=== PATIENT | female | born 2000 | race Caucasian/White ===

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

== ENCOUNTER 2020-06-17 14:31 | Observation (INO) | payer OTHER ==
--- NOTE | 2020-06-17 15:26 | XRAY ---
Indication: Decreased movement. Ultrasound biophysical profile exam performed. There is a single intrauterine with heart rate 126 BPM. Four-quadrant ADEN is 12.2 cm. 2 points given for breathing, movements, tone, and qualitative amniotic fluid volume. Impression: Total biophysical profile score is 8 out of 8.
[2020-06-17 15:47] VITALS: BP 108/65; PULSE 82; O2SAT 98
== END 2020-06-17 16:05 | disposition home or self-care (01) ==
LOC: OB 14:31
PROVIDERS: ADMIT Family Medicine; ATTEND Family Medicine
DX: Z34.83 Encounter for supervision of other normal pregnancy, third trimester (principal); Z3A.30 30 weeks gestation of pregnancy
CPT/HCPCS: 76818; 93225; 93226; G0378

== ENCOUNTER 2020-07-05 19:19 | Observation (INO) | payer OTHER ==
[2020-07-05 19:45] LABS: Appearance CLEAR (CLEAR); Bilirubin NEGATIVE (NEGATIVE); Blood NEGATIVE Ery/ul (0-5); Glucose NEGATIVE (NEGATIVE); Ketones TRACE (NEGATIVE); Leukocyte Esterase NEGATIVE (NEGATIVE); Mucus SLIGHT /HPF (NEGATIVE); Nitrite NEGATIVE (NEGATIVE); Protein,Urine Dip NEGATIVE (Negative); Specific Gravity 1.018 (1.005-1.025); Urobilinogen 4 mg/dL (0-1); WBC 0-2 /HPF (0-5)
[2020-07-05 19:56] LABS: Amphetamine,Urine NEGATIVE (NEGATIVE); Barbiturate,Urine NEGATIVE (NEGATIVE); Benzodiazepine,Urine NEGATIVE (NEGATIVE); Cocaine,Urine NEGATIVE (NEGATIVE); Methadone,Urine NEGATIVE (NEGATIVE); Opiate,Urine NEGATIVE (NEGATIVE); PCP,Urine NEGATIVE (NEGATIVE); THC,Urine NEGATIVE (NEGATIVE)
[2020-07-06 00:27] VITALS: BP 118/70; PULSE 79; O2SAT 97
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
== END 2020-07-05 23:59 | disposition home or self-care (01) ==
LOC: OB 19:19
PROVIDERS: ADMIT Family Medicine; ATTEND Family Medicine
DX: Z34.83 Encounter for supervision of other normal pregnancy, third trimester (principal); Z3A.33 33 weeks gestation of pregnancy; V89.2XXA Person injured in unspecified motor-vehicle accident, traffic, initial encounter
CPT/HCPCS: 76815; 80307; 81001; G0378

== ENCOUNTER 2020-07-29 16:12 | Observation (INO) | payer OTHER ==
[2020-07-29 17:21] LABS: Absolute Neutrophil Ct (ANC) 6.87 (1.4-6.9); BASOPHIL % 0.2 % (0.0-0.4); Basophil (Absolute #) 0.02 (0-0.4); Eosinophil % 0.9 % (0.00-5.0); Eosinophil (Absolute #) 0.09 (0-0.5); Hematocrit 34.6 % (35-47); Hemoglobin 11.2 gm/dl (12.0-16.0); Lymphocyte (Absolute #) 2.65 (1.0-4.6); Lymphocytes % 26.1 % (24.0-44.0); Mean Cell Volume 89.6 fl (78-100); Mean Corpuscular Hgb Concent. 32.4 g/dl (32-36); Mean Platelet Volume 12.2 fl (7.5-11.0); Monocyte (Absolute #) 0.51 (0.0-1.3); Neutrophil % 67.8 % (36.0-66.0); Platelet Count 274 K/mm3 (150-450); Red Blood Count 3.86 M/mm3 (4.1-5.4); White Blood Count 10.1 K/mm3 (4.0-10.5)
[2020-07-29 17:25] LABS: Appearance SLIGHTLY CLOUDY (CLEAR); Bilirubin NEGATIVE (NEGATIVE); Blood NEGATIVE Ery/ul (0-5); Epithelial Cells FEW /HPF (FEW); Glucose NEGATIVE (NEGATIVE); Ketones NEGATIVE (NEGATIVE); Leukocyte Esterase SMALL (NEGATIVE); Mucus SLIGHT /HPF (NEGATIVE); Nitrite NEGATIVE (NEGATIVE); Protein,Urine Dip NEGATIVE (Negative); RBC 0-2 /HPF (0-2); Specific Gravity 1.013 (1.005-1.025); Urobilinogen NEGATIVE mg/dL (0-1)
[2020-07-29 17:35] LABS: ALBUMIN 3.5 g/dL (3.5-5.0); ALKALINE PHOSPHATASE 132 U/L (38-126); ANION GAP 13.8 MEQ/L (5-15); BLOOD UREA NITROGEN 3 mg/dL (7-17); CHLORIDE 106 mmol/L (98-107); Calcium 8.6 mg/dL (8.4-10.2); Carbon Dioxide 20 mmol/L (22-30); Creatinine 1 0.45 mg/dL (0.52-1.04); EST GLOMERULAR FILTRATION RATE > 60.0 ML/MIN; Glucose 106 mg/dL (74-106); Potassium 3.5 mmol/L (3.5-5.1); SGOT/AST 17 U/L (14-36); SGPT/ALT 10 U/L (0-35); SODIUM 136 mmol/L (137-145); Total Protein 6.8 g/dL (6.3-8.2)
[2020-07-29] MEDS: Lactated Ringers 1,000 ML IV SCH (17:42)
[2020-07-29] MEDS: Zofran 4 MG/2 ML VIAL IV PRN ×2 (17:42→23:08)
[2020-07-29 17:45] LABS: Amphetamine,Urine NEGATIVE (NEGATIVE); Barbiturate,Urine NEGATIVE (NEGATIVE); Benzodiazepine,Urine NEGATIVE (NEGATIVE); Cocaine,Urine NEGATIVE (NEGATIVE); Methadone,Urine NEGATIVE (NEGATIVE); Opiate,Urine NEGATIVE (NEGATIVE); PCP,Urine NEGATIVE (NEGATIVE); THC,Urine NEGATIVE (NEGATIVE)
[2020-07-29] MEDS: TYLENOL 325 MG PO PRN ×2 (17:46→21:58)
[2020-07-29 20:42] VITALS: O2SAT 99
[2020-07-29] MEDS ORDERED: ROCEPHIN 1 Gm-D5w 50 ml Bag** 1 G/50 ML IVPB IV SCH (21:00)
[2020-07-30] MEDS: TYLENOL 325 MG PO PRN ×2 (02:13→05:59)
[2020-07-30] MEDS: Lactated Ringers 1,000 ML IV SCH ×2 (04:14→13:12)
[2020-07-30] MEDS: Zofran 4 MG/2 ML VIAL IV PRN ×2 (04:55→10:20)
--- NOTE | 2020-07-30 13:54 | PCM.SSS ---
History of Present Illness - Chief Complaint Chief Complaint: IUP History of Present Illness: is a 20 year old female at 36w4d who came to office yesterday c/o elevated BP at home (to the 160s) and frontal headache with nausea and poor po intake. Her BP in office was 120/74. She was sent to LR for further observation; all BP there have been 100s-120s systolic and diastolic pressures in the normal range as well. In office, her frontal and maxillary sinuses were ttp bilaterally. Her blood work was nonacute (normal WBC count, plt, AST/ALT, and uric acid). UA free of protein but 24 hour urine is pending. FHT have been Cat I. No contractions noted. She's been on LR at 100cc/hr and received 1g IV rocephin for likely sinusitis. Today her BROOKS is gone. She continues to have some nausea although today this manifested after eating 2 servings of hashbrowns and 2 servings of timmons. Will discharge to home after second dose of rocephin and after 24 hour urine is comp leted. F/u with me in office next week. Pt needs new BP test kit at home. - Review of Systems Constitutional: Fatigue Neurological: Headache Psychological: Drug Abuse (history of; has been clean recently) All Other Systems: Reviewed and Negative Medications & Allergies Home Medications: Home Medication List Vits W-Ca,Fe,FA(<1Mg) [] 1 tab PO DAILY 12/14/17 [History Confirmed 07/30/20] Allergies/Adverse Reactions: Allergies Allergy/AdvReac Type Severity Reaction Status Date / Time Sulfa (Sulfonamide AdvReac Nausea Verified 09/25/16 00:34 Antibiotics) - Past Medical History Past Medical History: Yes Respiratory History: Asthma, Other Pyscho-Social History: Anxiety, Attention Deficit Disorder, Bipolar, Depression Comment: pt states she has recently been diagnosed with pulmonary htn by dr alannah weaver. Ectopic - Past Surgical History Past Surgical History: Yes Other Surgical History: gastric surgery as infant - Social History Smoking Status: Former smoker How long have you smoked: 9 YEARS Exposure to second hand smoke: Yes Alcohol: Occasionally Drug Use: marijuana - Physical Exam Vital Signs: Vital Signs - 24 hr Temp Pulse Resp BP BP Pulse Ox 07/30/20 11:00 72 114/68 07/30/20 10:00 83 119/75 07/30/20 09:00 69 110/69 07/30/20 08:00 57 L 18 101/56 07/30/20 07:09 51 L 106/60 07/30/20 06:15 56 L 104/65 07/30/20 05:00 60 18 106/51 07/30/20 04:00 68 98/55 07/30/20 03:00 71 18 111/56 07/30/20 02:00 98.4 F 64 115/75 07/30/20 01:00 75 109/63 07/30/20 00:00 70 18 112/70 07/29/20 23:00 98.4 F 80 107/56 07/29/20 22:00 71 109/61 07/29/20 21:00 75 125/59 07/29/20 20:00 98.4 F 82 20 116/64 99 07/29/20 17:00 98.4 F 77 18 105/57 97/56 97 General Appearance: no apparent distress, alert Neurologic Exam: oriented x 3, cooperative, other (pat refl 2+ bilat. 1 beat of clonus bilat.) Eye Exam: eyes nml inspection Ears, Nose, Throat Exam: moist mucous membranes Neck Exam: normal inspection, non-tender, No lymphadenopathy Respiratory Exam: normal breath sounds, lungs clear, No crackles/rales, No r honchi, No wheezing Cardiovascular Exam: regular rate/rhythm, normal heart sounds, No murmur Gastrointestinal/Abdomen Exam: soft, normal bowel sounds, other (gravid), No guarding, No rebound Back Exam: No CVA tenderness Extremity Exam: No pedal edema, No swelling Skin Exam: normal color, warm, dry, No rash (Exam done in office yesterday; This morning pt in NAD, no respiratory distress. Head AT/NC. Abd gravid. Extr nttp.) Results - Labs Lab/Micro Results: Lab Results-Last 24 Hours 07/29/20 07/29/20 07/29/20 Range/Units 17:01 17:01 17:02 WBC 10.1 (4.0-10.5) K/mm3 RBC 3.86 L (4.1-5.4) M/mm3 Hgb 11.2 L (12.0-16.0) gm/dl Hct 34.6 L (35-47) % MCV 89.6 (78-100) fl MCH 29.0 (26-32) pg MCHC 32.4 (32-36) g/dl RDW 13.0 (11.5-14.0) % Plt Count 274 (150-450) K/mm3 MPV 12.2 H (7.5-11.0) fl Gran % 67.8 H (36.0-66.0) % Eos # (Auto) 0.09 (0-0.5) Absolute Lymphs (auto) 2.65 (1.0-4.6) Absolute Monos (auto) 0.51 (0.0-1.3) Lymphocytes % 26.1 (24.0-44.0) % Monocytes % 5.0 (0.0-12.0) % Eosinophils % 0.9 (0.00-5.0) % Basophils % 0.2 (0.0-0.4) % Absolute Granulocytes 6.87 (1.4-6.9) Basophils # 0.02 (0-0.4) Sodium 136 L (137-145) mmol/L Potassium 3.5 (3.5-5.1) mmol/L Chloride 106 (98-107) mmol/L Carbon Dioxide 20 L (22-30) mmol/L Anion Gap 13.8 (5-15) MEQ/L BUN 3 L (7-17) mg/dL Creatinine 0.45 L (0.52-1.04) mg/dL Estimated GFR > 60.0 ML/MIN Glucose 106 (74-106) mg/dL Calcium 8.6 (8.4-10.2) mg/dL Total Bilirubin 0.40 (0.2-1.3) mg/dL AST 17 (14-36) U/L ALT 10 (0-35) U/L Alkaline Phosphatase 132 H (38-126) U/L Serum Total Protein 6.8 (6.3-8.2) g/dL Albumin 3.5 (3.5-5.0) g/dL Urine Color YELLOW (YELLOW) Urine Appearance SLIGHTLY CLOUDY (CLEAR) Urine pH 6.0 (5-6) Ur Specific [place] 1.013 (1.005-1.025) Urine Protein NEGATIVE (Negative) Urine Ketones NEGATIVE (NEGATIVE) Urine Blood NEGATIVE (0-5) Marlo/ul Urine Nitrite NEGATIVE (NEGATIVE) Urine Bilirubin NEGATIVE (NEGATIVE) Urine Urobilinogen NEGATIVE (0-1) mg/dL Ur Leukocyte Esterase SMALL (NEGATIVE) Urine WBC (Auto) 3-5 (0-5) /HPF Urine RBC (Auto) 0-2 (0-2) /HPF U Epithel Cells (Auto) FEW (FEW) /HPF Urine Bacteria (Auto) NONE (NEGATIVE) /HPF Urine Mucus (Auto) SLIGHT (NEGATIVE) /HPF Urine Culture Reflexed NO (NO) Urine Glucose NEGATIVE (NEGATIVE) mg/dL Urine Opiates Level (NEGATIVE) Ur Methadone (NEGATIVE) Urine Barbiturates (NEGATIVE) Ur Phencyclidine (PCP) (NEGATIVE) Urine Amphetamine (NEGATIVE) U Benzodiazepine Level (NEGATIVE) Urine Cocaine (NEGATIVE) Urine Marijuana (THC) (NEGATIVE) 07/29/20 Range/Units 17:02 WBC (4.0-10.5) K/mm3 RBC (4.1-5.4) M/mm3 Hgb (12.0-16.0) gm/dl Hct (35-47) % MCV (78-100) fl MCH (26-32) pg MCHC (32-36) g/dl RDW (11.5-14.0) % Plt Count (150-450) K/mm3 MPV (7.5-11.0) fl Gran % (36.0-66.0) % Eos # (Auto) (0-0.5) Absolute Lymphs (auto) (1.0-4.6) Absolute Monos (auto) (0.0-1.3) Lymphocytes % (24.0-44.0) % Monocytes % (0.0-12.0) % Eosinophils % (0.00-5.0) % Basophils % (0.0-0.4) % Absolute Granulocytes (1.4-6.9) Basophils # (0-0.4) Sodium (137-145) mmol/L Potassium (3.5-5.1) mmol/L Chloride (98-107) mmol/L Carbon Dioxide (22-30) mmol/L Anion Gap (5-15) MEQ/L BUN (7-17) mg/dL Creatinine (0.52-1.04) mg/dL Estimated GFR ML/MIN Glucose (74-106) mg/dL Calcium (8.4-10.2) mg/dL Total Bilirubin (0.2-1.3) mg/dL AST (14-36) U/L ALT (0-35) U/L Alkaline Phosphatase (38-126) U/L Serum Total Protein (6.3-8.2) g/dL Albumin (3.5-5.0) g/dL Urine Color (YELLOW) Urine Appearance (CLEAR) Urine pH (5-6) Ur Specific [place] (1.005-1.025) Urine Protein (Negative) Urine Ketones (NEGATIVE) Urine Blood (0-5) Marlo/ul Urine Nitrite (NEGATIVE) Urine Bilirubin (NEGATIVE) Urine Urobilinogen (0-1) mg/dL Ur Leukocyte Esterase (NEGATIVE) Urine WBC (Auto) (0-5) /HPF Urine RBC (Auto) (0-2) /HPF U Epithel Cells (Auto) (FEW) /HPF Urine Bacteria (Auto) (NEGATIVE) /HPF Urine Mucus (Auto) (NEGATIVE) /HPF Urine Culture Reflexed (NO) Urine Glucose (NEGATIVE) mg/dL Urine Opiates Level NEGATIVE (NEGATIVE) Ur Methadone NEGATIVE (NEGATIVE) Urine Barbiturates NEGATIVE (NEGATIVE) Ur Phencyclidine (PCP) NEGATIVE (NEGATIVE) Urine Amphetamine NEGATIVE (NEGATIVE) U Benzodiazepine Level NEGATIVE (NEGATIVE) Urine Cocaine NEGATIVE (NEGATIVE) Urine Marijuana (THC) NEGATIVE (NEGATIVE) Assessment/Plan (1) Current Visit: Yes Status: Acute Qualifiers: Weeks of gestation: 36 weeks Qualified Code(s): Z3A.36 - 36 weeks gestation of Assessment & Plan: Discussed no indication to induce at this time. No sign of pre-eclampsia here in OB - 24 hour urine pending. Code(s): Z34.90 - ENCNTR FOR SUPRVSN OF NORMAL , UNSP, UNSP TRIMESTER (2) Sinusitis Current Visit: Yes Status: Acute Qualifiers: Sinusitis location: frontal Chronicity: acute Recurrence: not specified as recurrent Qualified Code(s): J01.10 - Acute frontal sinusitis, unspecified Assessment & Plan: Home on po keflex. Code(s): J32.9 - CHRONIC SINUSITIS, UNSPECIFIED (3) Headache Current Visit: Yes Status: Resolved Qualifiers: Headache type: unspecified Headache chronicity pattern: acute headache Intractability: not intractable Qualified Code(s): R51.9 - Headache, unspecified Assessment & Plan: likely due to sinusitis Code(s): R51.9 - HEADACHE, UNSPECIFIED (4) Nausea and vomiting Current Visit: No Status: Acute Qualifiers: Vomiting type: unspecified Vomiting Intractability: non-intractable Qualified Code(s): R11.2 - Nausea with vomiting, unspecified Assessment & Plan: improved; pt admits she ate too much earlier which likely induced nausea to return. Code(s): R11.2 - NAUSEA WITH VOMITING, UNSPECIFIED Hospital Summary - Hospital Course Hospital Course: is a 20 year old female at 36w4d who came to office yesterday c/o elevated BP at home (to the 160s) and frontal headache with nausea and poor po intake. Her BP in office was 120/74. She was sent to LR for further observ ation; all BP there have been 100s-120s systolic and diastolic pressures in the normal range as well. In office, her frontal and maxillary sinuses were ttp bilaterally. Her blood work was nonacute (normal WBC count, plt, AST/ALT, and uric acid). UA free of protein but 24 hour urine is pending. FHT have been Cat I. No contractions noted. She's been on LR at 100cc/hr and received 1g IV rocephin for likely sinusitis. Today her BROOKS is gone. She continues to have some nausea although today this manifested after eating 2 servings of hashbrowns and 2 servings of timmons. Will discharge to home after second dose of rocephin and after 24 hour urine is completed. F/u with me in office next week. Pt needs new BP test kit at home. - Vitals & Intake/Output Vital Signs: Vital Signs Temperature 98.4 F 07/30/20 02:00 Pulse Rate 72 07/30/20 11:00 Respiratory Rate 18 07/30/20 08:00 Blood Pressure 114/68 07/30/20 11:00 O2 Sat by Pulse Oximetry 99 07/29/20 20:00 Intake & Output: Intake & Output 07/28/20 07/29/20 07/30/20 07/31/20 11:59 11:59 11:59 11:59 Intake Total 500 540 Output Total 1250 Balance -750 540 Weight 81.647 kg - Lab Result Diagrams: 07/29/20 17:01 07/29/20 17:01 Lab Results-Last 24 Hrs: Lab Results-Last 24 Hours 07/29/20 07/29/20 07/29/20 Range/Units 17:01 17:01 17:02 WBC 10.1 (4.0-10.5) K/mm3 RBC 3.86 L (4.1-5.4) M/mm3 Hgb 11.2 L (12.0-16.0) gm/dl Hct 34.6 L (35-47) % MCV 89.6 (78-100) fl MCH 29.0 (26-32) pg MCHC 32.4 (32-36) g/dl RDW 13.0 (11.5-14.0) % Plt Count 274 (150-450) K/mm3 MPV 12.2 H (7.5-11.0) fl Gran % 67.8 H (36.0-66.0) % Eos # (Auto) 0.09 (0-0.5) Absolute Lymphs (auto) 2.65 (1.0-4.6) Absolute Monos (auto) 0.51 (0.0-1.3) Lymphocytes % 26.1 (24.0-44.0) % Monocytes % 5.0 (0.0-12.0) % Eosinophils % 0.9 (0.00-5.0) % Basophils % 0.2 (0.0-0.4) % Absolute Granulocytes 6.87 (1.4-6.9) Basophils # 0.02 (0-0.4) Sodium 136 L (137-145) mmol/L Potassium 3.5 (3.5-5.1) mmol/L Chloride 106 (98-107) mmol/L Carbon Dioxide 20 L (22-30) mmol/L Anion Gap 13.8 (5-15) MEQ/L BUN 3 L (7-17) mg/dL Creatinine 0.45 L (0.52-1.04) mg/dL Estimated GFR > 60.0 ML/MIN Glucose 106 (74-106) mg/dL Calcium 8.6 (8.4-10.2) mg/dL Total Bilirubin 0.40 (0.2-1.3) mg/dL AST 17 (14-36) U/L ALT 10 (0-35) U/L Alkaline Phosphatase 132 H (38-126) U/L Serum Total Protein 6.8 (6.3-8.2) g/dL Albumin 3.5 (3.5-5.0) g/dL Urine Color YELLOW (YELLOW) Urine Appearance SLIGHTLY CLOUDY (CLEAR) Urine pH 6.0 (5-6) Ur Specific [place] 1.013 (1.005-1.025) Urine Protein NEGATIVE (Negative) Urine Ketones NEGATIVE (NEGATIVE) Urine Blood NEGATIVE (0-5) Marlo/ul Urine Nitrite NEGATIVE (NEGATIVE) Urine Bilirubin NEGATIVE (NEGATIVE) Urine Urobilinogen NEGATIVE (0-1) mg/dL Ur Leukocyte Esterase SMALL (NEGATIVE) Urine WBC (Auto) 3-5 (0-5) /HPF Urine RBC (Auto) 0-2 (0-2) /HPF U Epithel Cells (Auto) FEW (FEW) /HPF Urine Bacteria (Auto) NONE (NEGATIVE) /HPF Urine Mucus (Auto) SLIGHT (NEGATIVE) /HPF Urine Culture Reflexed NO (NO) Urine Glucose NEGATIVE (NEGATIVE) mg/dL Urine Opiates Level (NEGATIVE) Ur Methadone (NEGATIVE) Urine Barbiturates (NEGATIVE) Ur Phencyclidine (PCP) (NEGATIVE) Urine Amphetamine (NEGATIVE) U Benzodiazepine Level (NEGATIVE) Urine Cocaine (NEGATIVE) Urine Marijuana (THC) (NEGATIVE) 07/29/20 Range/Units 17:02 WBC (4.0-10.5) K/mm3 RBC (4.1-5.4) M/mm3 Hgb (12.0-16.0) gm/dl Hct (35-47) % MCV (78-100) fl MCH (26-32) pg MCHC (32-36) g/dl RDW (11.5-14.0) % Plt Count (150-450) K/mm3 MPV (7.5-11.0) fl Gran % (36.0-66.0) % Eos # (Auto) (0-0.5) Absolute Lymphs (auto) (1.0-4.6) Absolute Monos (auto) (0.0-1.3) Lymphocytes % (24.0-44.0) % Monocytes % (0.0-12.0) % Eosinophils % (0.00-5.0) % Basophils % (0.0-0.4) % Absolute Granulocytes (1.4-6.9) Basophils # (0-0.4) Sodium (137-145) mmol/L Potassium (3.5-5.1) mmol/L Chloride (98-107) mmol/L Carbon Dioxide (22-30) mmol/L Anion Gap (5-15) MEQ/L BUN (7-17) mg/dL Creatinine (0.52-1.04) mg/dL Estimated GFR ML/MIN Glucose (74-106) mg/dL Calcium (8.4-10.2) mg/dL Total Bilirubin (0.2-1.3) mg/dL AST (14-36) U/L ALT (0-35) U/L Alkaline Phosphatase (38-126) U/L Serum Total Protein (6.3-8.2) g/dL Albumin (3.5-5.0) g/dL Urine Color (YELLOW) Urine Appearance (CLEAR) Urine pH (5-6) Ur Specific [place] (1.005-1.025) Urine Protein (Negative) Urine Ketones (NEGATIVE) Urine Blood (0-5) Marlo/ul Urine Nitrite (NEGATIVE) Urine Bilirubin (NEGATIVE) Urine Urobilinogen (0-1) mg/dL Ur Leukocyte Esterase (NEGATIVE) Urine WBC (Auto) (0-5) /HPF Urine RBC (Auto) (0-2) /HPF U Epithel Cells (Auto) (FEW) /HPF Urine Bacteria (Auto) (NEGATIVE) /HPF Urine Mucus (Auto) (NEGATIVE) /HPF Urine Culture Reflexed (NO) Urine Glucose (NEGATIVE) mg/dL Urine Opiates Level NEGATIVE (NEGATIVE) Ur Methadone NEGATIVE (NEGATIVE) Urine Barbiturates NEGATIVE (NEGATIVE) Ur Phencyclidine (PCP) NEGATIVE (NEGATIVE) Urine Amphetamine NEGATIVE (NEGATIVE) U Benzodiazepine Level NEGATIVE (NEGATIVE) Urine Cocaine NEGATIVE (NEGATIVE) Urine Marijuana (THC) NEGATIVE (NEGATIVE) - Discharge Disposition: Home, Self-Care Condition: Stable Prescriptions: No Action Vits W-Ca,Fe,FA(<1Mg) [] 1 tab PO DAILY Follow up with: ISIDORO MICHAEL [Primary Care Provider] -
[2020-07-30] MEDS ORDERED: ROCEPHIN 1 Gm-D5w 50 ml Bag** 1 G/50 ML IVPB IV ONE (18:11)
[2020-07-30 19:48] VITALS: BP 105/62; PULSE 74
[2020-07-30 20:33] LABS: 24 HR TOT. PROTEIN CALCULATION 0.451 GM/DAY (0.04-0.15)
[2020-07-30] MEDS ORDERED: ROCEPHIN 1 Gm-D5w 50 ml Bag** 1 G/50 ML IVPB IV SCH (22:00)
== END 2020-07-30 20:45 | disposition home or self-care (01) ==
LOC: MED SURG 16:12
PROVIDERS: ADMIT Family Medicine; ATTEND Family Medicine
DX: O26.893 Other specified pregnancy related conditions, third trimester (principal); Z3A.36 36 weeks gestation of pregnancy; R51.9 Headache, unspecified; J01.10 Acute frontal sinusitis, unspecified; R11.2 Nausea with vomiting, unspecified
CPT/HCPCS: 36415; 80053; 80307; 81001; 81050; 84156; 85025; G0378; J0696; J2405; A9270-GY

== ENCOUNTER 2020-08-01 14:53 | Observation (INO) | payer OTHER ==
[2020-08-01 17:16] LABS: Appearance CLOUDY (CLEAR); Bacteria MODERATE /HPF (NEGATIVE); Bilirubin NEGATIVE (NEGATIVE); Blood NEGATIVE Ery/ul (0-5); Epithelial Cells PACKED /HPF (FEW); Glucose NEGATIVE (NEGATIVE); Ketones NEGATIVE (NEGATIVE); Leukocyte Esterase LARGE (NEGATIVE); Mucus SLIGHT /HPF (NEGATIVE); Nitrite NEGATIVE (NEGATIVE); Non-Squamous Epithelial Cells RARE /HPF (FEW); Protein,Urine Dip 30 (Negative); Specific Gravity 1.026 (1.005-1.025); Urobilinogen 4 mg/dL (0-1)
[2020-08-01 20:00] VITALS: BP 110/74; PULSE 84; O2SAT 98
== END 2020-08-01 20:15 | disposition home or self-care (01) ==
LOC: LAB 14:53 → OB 14:53 → EDSTATUS 15:18
PROVIDERS: ADMIT Family Medicine; ATTEND Family Medicine
DX: Z34.83 Encounter for supervision of other normal pregnancy, third trimester (principal); Z3A.37 37 weeks gestation of pregnancy
CPT/HCPCS: 81001; 87077; 87081; 87086; 87186

== ENCOUNTER 2020-08-02 10:38 | Observation (INO) | payer OTHER ==
[2020-08-02] MEDS ORDERED: XYLOCAINE 1% HCL 20 ML MDV IJ ONE (11:45)
[2020-08-02] MEDS ORDERED: TYLENOL EXTRA STRENGTH 500 MG PO PRN (11:52)
[2020-08-02] MEDS ORDERED: Rocephin 1000 MG INJ IM ONE (12:00)
[2020-08-02 13:48] LABS: Creatinine, Urine Random 136.2 mg/dl
[2020-08-02 14:49] VITALS: BP 110/69; PULSE 68
== END 2020-08-02 14:40 | disposition home or self-care (01) ==
LOC: OB 10:38
PROVIDERS: ADMIT Family Medicine; ATTEND Family Medicine
DX: O14.93 Unspecified pre-eclampsia, third trimester (principal); Z3A.37 37 weeks gestation of pregnancy
CPT/HCPCS: 59025; 82570; 84156; G0378; J0696; A9270-GY

== ENCOUNTER 2020-08-03 10:21 | Observation (INO) | payer OTHER ==
[2020-08-03] MEDS ORDERED: Rocephin 1000 MG INJ IM ONE (10:49)
[2020-08-03] MEDS ORDERED: XYLOCAINE 1% HCL 20 ML MDV IJ ONE (10:49)
[2020-08-03 11:24] LABS: Absolute Neutrophil Ct (ANC) 4.91 (1.4-6.9); BASOPHIL % 0.4 % (0.0-0.4); Basophil (Absolute #) 0.03 (0-0.4); Eosinophil (Absolute #) 0.08 (0-0.5); Hematocrit 32.4 % (35-47); Hemoglobin 10.6 gm/dl (12.0-16.0); Lymphocyte (Absolute #) 2.54 (1.0-4.6); Lymphocytes % 31.4 % (24.0-44.0); Mean Cell Volume 89.3 fl (78-100); Mean Corpuscular Hemoglobin 29.2 pg (26-32); Mean Corpuscular Hgb Concent. 32.7 g/dl (32-36); Mean Platelet Volume 12.5 fl (7.5-11.0); Monocyte (Absolute #) 0.53 (0.0-1.3); Monocytes % 6.6 % (0.0-12.0); Neutrophil % 60.6 % (36.0-66.0); Platelet Count 235 K/mm3 (150-450); Red Blood Count 3.63 M/mm3 (4.1-5.4); Red Cell Distribution Width 12.8 % (11.5-14.0); White Blood Count 8.1 K/mm3 (4.0-10.5)
[2020-08-03 11:54] LABS: ALBUMIN 3.5 g/dL (3.5-5.0); ALKALINE PHOSPHATASE 132 U/L (38-126); ANION GAP 12.9 MEQ/L (5-15); BLOOD UREA NITROGEN 6 mg/dL (7-17); CHLORIDE 104 mmol/L (98-107); Calcium 8.6 mg/dL (8.4-10.2); Carbon Dioxide 21 mmol/L (22-30); Creatinine 1 0.46 mg/dL (0.52-1.04); EST GLOMERULAR FILTRATION RATE > 60.0 ML/MIN; Glucose 108 mg/dL (74-106); Potassium 3.4 mmol/L (3.5-5.1); SGOT/AST 18 U/L (14-36); SGPT/ALT 9 U/L (0-35); SODIUM 135 mmol/L (137-145); Total Protein 6.7 g/dL (6.3-8.2); Uric Acid 4.7 mg/dL (2.6-6.0)
--- NOTE | 2020-08-03 12:04 | XRAY ---
Indication: Preeclampsia. Ultrasound biophysical profile exam performed. Comparison: None There is a single viable intrauterine with heart rate 169 BPM. Four-quadrant ADEN is 6.9 cm with largest pocket 3.1 cm. 2 points given for breathing, movements, tone, and qualitative amniotic fluid volume. Impression: Total biophysical profile score is 8 out of 8.
[2020-08-03 14:34] VITALS: BP 123/73; PULSE 90
== END 2020-08-03 14:05 | disposition home or self-care (01) ==
LOC: MED SURG 10:21
PROVIDERS: ADMIT Family Medicine; ATTEND Family Medicine
DX: Z34.83 Encounter for supervision of other normal pregnancy, third trimester (principal); Z3A.37 37 weeks gestation of pregnancy
CPT/HCPCS: 36415; 59025; 76818; 80053; 84550; 85025; G0378; J0696

== ENCOUNTER 2020-08-12 11:51 | Observation (INO) | payer OTHER ==
[2020-08-12 13:11] LABS: Absolute Neutrophil Ct (ANC) 4.48 (1.4-6.9); BASOPHIL % 0.3 % (0.0-0.4); Basophil (Absolute #) 0.02 (0-0.4); Eosinophil % 1.2 % (0.00-5.0); Eosinophil (Absolute #) 0.09 (0-0.5); Hematocrit 33.6 % (35-47); Hemoglobin 10.9 gm/dl (12.0-16.0); Lymphocyte (Absolute #) 2.42 (1.0-4.6); Lymphocytes % 32.5 % (24.0-44.0); Mean Cell Volume 88.7 fl (78-100); Mean Corpuscular Hemoglobin 28.8 pg (26-32); Mean Corpuscular Hgb Concent. 32.4 g/dl (32-36); Mean Platelet Volume 12.1 fl (7.5-11.0); Monocyte (Absolute #) 0.44 (0.0-1.3); Monocytes % 5.9 % (0.0-12.0); Neutrophil % 60.1 % (36.0-66.0); Platelet Count 296 K/mm3 (150-450); Red Blood Count 3.79 M/mm3 (4.1-5.4); White Blood Count 7.5 K/mm3 (4.0-10.5)
[2020-08-12 13:21] LABS: ALBUMIN 3.4 g/dL (3.5-5.0); ALKALINE PHOSPHATASE 140 U/L (38-126); ANION GAP 16.3 MEQ/L (5-15); BLOOD UREA NITROGEN 6 mg/dL (7-17); CHLORIDE 104 mmol/L (98-107); Carbon Dioxide 19 mmol/L (22-30); Creatinine 1 0.51 mg/dL (0.52-1.04); EST GLOMERULAR FILTRATION RATE > 60.0 ML/MIN; Glucose 97 mg/dL (74-106); Potassium 3.7 mmol/L (3.5-5.1); SGOT/AST 18 U/L (14-36); SGPT/ALT 11 U/L (0-35); SODIUM 136 mmol/L (137-145); Total Protein 6.5 g/dL (6.3-8.2)
[2020-08-12 14:25] VITALS: O2SAT 98
--- NOTE | 2020-08-12 14:51 | XRAY ---
Indication: growth. 2-dimensional OB ultrasound performed. Comparison: June 04, 2020. There is again single viable intrauterine now in cephalic presentation. heart rate 138 BPM. anatomy previously documented. Again anterior placenta without abruption/previa. BPD measures 9.10 cm corresponding to 36 weeks 6 days. HC measures 32.04 cm corresponding to 36 weeks 1 day. AC measures 33.45 cm corresponding to 37 weeks 2 days. FL measures 7.16 cm corresponding to 36 weeks 5 days. Estimated weight 6 lbs. 13 oz., +/- 1 pound 0 ounces. Approximately 29 percentile. ADEN is 6.5 cm. Impression: Single viable intrauterine with mean gestational age 36 weeks 5 days. Normal progression of . No new/acute findings.
--- NOTE | 2020-08-12 14:53 | XRAY ---
Indication: Decreased movement. Ultrasound biophysical profile exam performed. Comparison: August 03, 2020. Again single viable intrauterine with heart rate 138 BPM. Four-quadrant ADEN is 6.5 cm. 2 points given for breathing, movements, tone, and qualitative amniotic fluid volume. Impression: Again total biophysical profile score is 8 out of 8.
[2020-08-12 15:16] LABS: Appearance SLIGHTLY CLOUDY (CLEAR); Bacteria RARE /HPF (NEGATIVE); Bilirubin NEGATIVE (NEGATIVE); Blood NEGATIVE Ery/ul (0-5); Epithelial Cells FEW /HPF (FEW); Glucose NEGATIVE (NEGATIVE); Ketones NEGATIVE (NEGATIVE); Leukocyte Esterase MODERATE (NEGATIVE); Mucus SLIGHT /HPF (NEGATIVE); Nitrite NEGATIVE (NEGATIVE); Protein,Urine Dip NEGATIVE (Negative); RBC 0-2 /HPF (0-2); Specific Gravity 1.017 (1.005-1.025); Urobilinogen 2 mg/dL (0-1)
[2020-08-12 16:56] VITALS: BP 117/71; PULSE 89
== END 2020-08-12 16:15 | disposition home or self-care (01) ==
LOC: MED SURG 11:51
PROVIDERS: ADMIT Family Medicine; ATTEND Family Medicine
DX: O36.8130 Decreased fetal movements, third trimester, not applicable or unspecified (principal); Z3A.38 38 weeks gestation of pregnancy
CPT/HCPCS: 36415; 59025; 76816; 76818; 80053; 81001; 84550; 85025; 87086; G0378

== ENCOUNTER 2020-08-15 17:00 | Inpatient (IN) | payer OTHER ==
[2020-08-15] MEDS: Lactated Ringers 1,000 ML IV SCH (22:40)
[2020-08-15 23:28] LABS: BASOPHIL % 0.3 % (0.0-0.4); Basophil (Absolute #) 0.03 (0-0.4); Eosinophil % 0.9 % (0.00-5.0); Eosinophil (Absolute #) 0.09 (0-0.5); Hemoglobin 11.4 gm/dl (12.0-16.0); Lymphocytes % 29.8 % (24.0-44.0); Mean Cell Volume 87.5 fl (78-100); Mean Corpuscular Hemoglobin 30.2 pg (26-32); Mean Corpuscular Hgb Concent. 34.5 g/dl (32-36); Mean Platelet Volume 12.9 fl (7.5-11.0); Monocyte (Absolute #) 0.66 (0.0-1.3); Monocytes % 6.5 % (0.0-12.0); Neutrophil % 62.5 % (36.0-66.0); Platelet Count 296 K/mm3 (150-450); Red Blood Count 3.77 M/mm3 (4.1-5.4); Red Cell Distribution Width 12.8 % (11.5-14.0); White Blood Count 10.1 K/mm3 (4.0-10.5)
[2020-08-16] MEDS ORDERED: BRETHINE 1 MG/ML SQ PRN
[2020-08-16] MEDS ORDERED: Cervidil 10 MG VAG SCH
[2020-08-16 00:10] LABS: Amphetamine,Urine NEGATIVE (NEGATIVE); Barbiturate,Urine NEGATIVE (NEGATIVE); Benzodiazepine,Urine NEGATIVE (NEGATIVE); Cocaine,Urine NEGATIVE (NEGATIVE); Methadone,Urine NEGATIVE (NEGATIVE); Opiate,Urine NEGATIVE (NEGATIVE); PCP,Urine NEGATIVE (NEGATIVE); THC,Urine NEGATIVE (NEGATIVE)
[2020-08-16 00:10] LABS: Slide Review 1 YES
[2020-08-16] MEDS: Lactated Ringers 1,000 ML IV SCH ×3 (06:00→20:02)
[2020-08-16] MEDS: Zofran 4 MG/2 ML VIAL IV PRN ×2 (06:54→14:26)
[2020-08-16] MEDS: TYLENOL EXTRA STRENGTH 500 MG PO PRN (06:56)
[2020-08-16] MEDS ORDERED: XYLOCAINE 1% HCL 20 ML MDV IJ PRN (08:00)
[2020-08-16] MEDS ORDERED: PITOCIN 30 UNITS/ LR 500 ML 30 UNITS/500 ML IV.SOLN. IV SCH (13:00)
[2020-08-16] MEDS ORDERED: OMNIPEN 2 GM*** 2 G in Sodium Chloride 100ML MINI-BAG PLUS 100 ML IV ONE (13:00)
[2020-08-16] MEDS ORDERED: Lactated Ringers 1,000 ML IV ONE (14:29)
[2020-08-16] MEDS ORDERED: OB EPIDURAL NAROPIN/SUFENTANIL IN NACL EPIDURAL PRN (14:29)
[2020-08-16] MEDS ORDERED: Ephedrine Sulfate 50 MG/ML IV PRN (14:29)
[2020-08-16] MEDS: OMNIPEN 1 GM*** 1 GM in Sodium Chloride 100ML MINI-BAG PLUS 100 ML IV SCH ×2 (17:03→21:00)
[2020-08-16 18:45] LABS: CHLAMYDIA DNA NOT DETECTED (NEGATIVE); GC DNA Probe NOT DETECTED (NEGATIVE)
[2020-08-16] MEDS: PITOCIN 30 UNITS/ LR 500 ML 30 UNITS/500 ML IV.SOLN. IV SCH (21:00)
[2020-08-16] MEDS ORDERED: LANSINOH 40 GM TOP PRN (21:13)
[2020-08-16] MEDS ORDERED: TYLENOL EXTRA STRENGTH 500 MG PO PRN (21:13)
[2020-08-16] MEDS ORDERED: Mylicon 80MG PO PRN (21:13)
[2020-08-16] MEDS ORDERED: Ambien 10 MG PO PRN (21:13)
[2020-08-16] MEDS ORDERED: NORCO 5/325 MG PO PRN (21:13)
[2020-08-16] MEDS ORDERED: CORTISONE 1% CREAM TP PRN (21:13)
[2020-08-16] MEDS: TUCKS TP PRN (21:44)
[2020-08-16] MEDS: Dermoplast Spray TP PRN (21:44)
[2020-08-16] MEDS: Colace 100 MG PO SCH (22:00)
[2020-08-17] MEDS: TYLENOL EXTRA STRENGTH 500 MG PO PRN ×2 (02:11→12:47)
[2020-08-17 05:35] LABS: BASOPHIL % 0.2 % (0.0-0.4); Basophil (Absolute #) 0.03 (0-0.4); Eosinophil % 0.7 % (0.00-5.0); Eosinophil (Absolute #) 0.09 (0-0.5); Hematocrit 33.8 % (35-47); Hemoglobin 10.8 gm/dl (12.0-16.0); Lymphocyte (Absolute #) 3.06 (1.0-4.6); Mean Corpuscular Hemoglobin 28.1 pg (26-32); Mean Platelet Volume 12.8 fl (7.5-11.0); Monocyte (Absolute #) 1.02 (0.0-1.3); Monocytes % 7.7 % (0.0-12.0); Neutrophil % 68.4 % (36.0-66.0); Platelet Count 272 K/mm3 (150-450); Red Blood Count 3.84 M/mm3 (4.1-5.4); White Blood Count 13.3 K/mm3 (4.0-10.5)
[2020-08-17] MEDS: Lactated Ringers 1,000 ML IV SCH ×2 (06:35→22:22)
[2020-08-17] MEDS: MOTRIN 400 MG PO PRN (07:44)
[2020-08-17] MEDS: Colace 100 MG PO SCH ×2 (10:48→22:22)
[2020-08-17] MEDS: FERREX 150 PO SCH (10:48)
[2020-08-17] MEDS: TUCKS TP PRN (10:58)
[2020-08-17] MEDS: Dermoplast Spray TP PRN (10:58)
[2020-08-17] MEDS: PITOCIN 30 UNITS/ LR 500 ML 30 UNITS/500 ML IV.SOLN. IV SCH (22:21)
[2020-08-18] MEDS: TYLENOL EXTRA STRENGTH 500 MG PO PRN (00:57)
[2020-08-18 06:06] VITALS: O2SAT 97
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
[2020-08-18] MEDS: MOTRIN 400 MG PO PRN (09:59)
[2020-08-18] MEDS: FERREX 150 PO SCH (09:59)
[2020-08-18] MEDS: Colace 100 MG PO SCH (15:18)
[2020-08-18 15:20] VITALS: BP 110/58; PULSE 81
== END 2020-08-18 19:15 | disposition home or self-care (01) | DRG 807 ==
LOC: OB 17:00 → EEVIPCON 22:03 → OB 22:03 → OBSVTOIN 08-16 17:00
PROVIDERS: ADMIT Family Medicine; ATTEND Family Medicine
PROC: 10E0XZZ Delivery of Products of Conception, External Approach (ICD-10-PCS; principal; 2020-08-16)
DX: O80 Encounter for full-term uncomplicated delivery (principal); Z37.0 Single live birth; Z3A.39 39 weeks gestation of pregnancy; R51.9 Headache, unspecified; F19.11 Other psychoactive substance abuse, in remission
CPT/HCPCS: 36415; 76815; 80307; 85025; 87086; 87340; 87491; 87591; G0378; J0290; J2405; J2590; A9270-GY

== ENCOUNTER 2021-07-31 20:10 | Emergency (ER) | payer OTHER ==
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
[2021-07-31 21:10] VITALS: BP 131/74; PULSE 95; O2SAT 98
== END 2021-07-31 21:21 | disposition home or self-care (01) ==
LOC: ED 20:10
DX: M25.571 Pain in right ankle and joints of right foot (principal); M25.561 Pain in right knee; M25.551 Pain in right hip; V86.55XA Driver of 3- or 4- wheeled all-terrain vehicle (ATV) injured in nontraffic accident, initial encounter; Y93.I9 Activity, other involving external motion; Z33.1 Pregnant state, incidental; Z72.0 Tobacco use
CPT/HCPCS: 84703; 99283

== ENCOUNTER 2021-09-04 13:53 | Emergency (ER) | payer OTHER ==
[2021-09-04 14:08] VITALS: BP 129/67; PULSE 68; O2SAT 98
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
== END 2021-09-04 14:21 | disposition home or self-care (01) ==
LOC: ED 13:53
DX: O20.0 Threatened abortion (principal); Z3A.16 16 weeks gestation of pregnancy
CPT/HCPCS: 99283

== ENCOUNTER 2021-10-07 10:51 | Observation (INO) | payer OTHER ==
[2021-10-07 11:27] LABS: Bacteria MODERATE /HPF (NEGATIVE); Epithelial Cells RARE /HPF (FEW); Mucus SLIGHT /HPF (NEGATIVE); RBC 0-2 /HPF (0-2)
[2021-10-07 11:28] LABS: Appearance CLEAR (CLEAR); Bilirubin SMALL (NEGATIVE); Glucose NEGATIVE (NEGATIVE); Ketones NEGATIVE (NEGATIVE); Nitrite NEGATIVE (NEGATIVE); Ph 6.5 (5-6); Protein,Urine Dip TRACE (Negative); RBC NEGATIVE Ery/ul (0-5); Specific Gravity >=1.030 (1.005-1.025); Urine Cultured Indicated? YES; Urobilinogen 2 mg/dL (0-1)
[2021-10-07 11:29] LABS: Dipstick done @ ? MAIN LAB
[2021-10-07 11:38] LABS: Amphetamine,Urine NEGATIVE (NEGATIVE); Barbiturate,Urine NEGATIVE (NEGATIVE); Benzodiazepine,Urine NEGATIVE (NEGATIVE); Cocaine,Urine NEGATIVE (NEGATIVE); Methadone,Urine NEGATIVE (NEGATIVE); Opiate,Urine NEGATIVE (NEGATIVE); PCP,Urine NEGATIVE (NEGATIVE); THC,Urine POSITIVE (NEGATIVE)
[2021-10-07 12:03] VITALS: BP 115/65; PULSE 77; O2SAT 98
--- NOTE | 2021-10-07 13:05 | XRAY ---
Indication: Right flank pain and cramping. OB ultrasound performed. Comparison: None for this . Single intrauterine currently in breech presentation. heart rate 145 bpm. Dominant fundal placenta without abnormal retroplacental fluid. BPD measures 4.62 cm corresponding to 20 weeks 0 days. HC measures 17.20 cm corresponding to 19 weeks 5 days. AC measures 15.03 cm corresponding to 20 weeks 2 days. FL measures 3.03 cm corresponding to 19 weeks 3 days. ADEN is 12.6 cm. Incidental moderate maternal right renal hydronephrosis, doubt related to given gestational age. Impression: 1. Single viable intrauterine with mean gestational age 19 weeks 6 days. Expected date confinement is February 25, 2022. 2. Moderate maternal right renal hydronephrosis. Rule out distal obstructive uropathy.
== END 2021-10-07 13:40 | disposition home or self-care (01) ==
LOC: OB 10:51
PROVIDERS: ADMIT Family Medicine; ATTEND Family Medicine
DX: Z34.82 Encounter for supervision of other normal pregnancy, second trimester (principal); Z3A.19 19 weeks gestation of pregnancy
CPT/HCPCS: 76805; 80307; 81015; 87086; G0378

== ENCOUNTER 2021-12-05 10:28 | Observation (INO) | payer OTHER ==
[2021-12-05 10:57] VITALS: BP 113/65; PULSE 81
== END 2021-12-05 12:22 | disposition home or self-care (01) ==
LOC: OB 10:28
PROVIDERS: ADMIT Family Medicine; ATTEND Family Medicine
DX: Z34.83 Encounter for supervision of other normal pregnancy, third trimester (principal); Z3A.28 28 weeks gestation of pregnancy
CPT/HCPCS: G0378

== ENCOUNTER 2021-12-19 16:52 | Observation (INO) | payer OTHER ==
[2021-12-19 17:31] VITALS: BP 106/71; PULSE 107; O2SAT 97
[2021-12-19 17:47] LABS: Amphetamine,Urine NEGATIVE (NEGATIVE); Barbiturate,Urine NEGATIVE (NEGATIVE); Benzodiazepine,Urine NEGATIVE (NEGATIVE); Methadone,Urine NEGATIVE (NEGATIVE); Opiate,Urine NEGATIVE (NEGATIVE); PCP,Urine NEGATIVE (NEGATIVE); THC,Urine POSITIVE (NEGATIVE)
== END 2021-12-19 18:05 | disposition home or self-care (01) ==
LOC: UNDOADMOB 16:52 → OB 16:52
PROVIDERS: ADMIT Family Medicine; ATTEND Family Medicine
DX: Z34.82 Encounter for supervision of other normal pregnancy, second trimester (principal); Z3A.19 19 weeks gestation of pregnancy
CPT/HCPCS: 80307; 84112; G0378

== ENCOUNTER 2022-06-01 11:29 | Emergency (ER) | payer OTHER ==
[2022-06-01 11:52] VITALS: O2SAT 99
[2022-06-01] MEDS ORDERED: Sodium Chloride 0.9% 1000 ML 1,000 ML IV STA (11:52)
[2022-06-01] MEDS ORDERED: Zofran 4 MG/2 ML VIAL IV ONE (11:52)
[2022-06-01 12:28] LABS: Absolute Neutrophil Ct (ANC) 3.45 x10^3/uL (1.4-6.9); BASOPHIL % 0.6 % (0.0-0.4); Basophil (Absolute #) 0.04 x10^3/uL (0-0.4); Eosinophil % 1.5 % (0.00-5.0); Hemoglobin 13.6 g/dL (12.0-16.0); IMMATURE GRAN # 0.02 x10^3u/L (0.00-0.03); IMMATURE GRAN % 0.3 % (0.00-0.4); Lymphocyte (Absolute #) 2.55 x10^3/uL (1.0-4.6); Lymphocytes % 39.5 % (24.0-44.0); Mean Corpuscular Hemoglobin 29.2 pg (26-32); Mean Corpuscular Hgb Concent. 33.2 g/dL (32-36); Mean Platelet Volume 10.9 fL (7.5-11.0); Monocytes % 4.6 % (0.0-12.0); Neutrophil % 53.5 % (36.0-66.0); Platelet Count 351 x10^3/uL (150-450); Red Blood Count 4.66 x10^6/uL (4.1-5.4); Red Cell Distribution Width 13.5 % (11.5-14.0); White Blood Count 6.5 x10^3/uL (4.0-10.5)
[2022-06-01] MEDS ORDERED: Sodium Chloride 0.9% 1000 ML 1,000 ML ONE (12:30)
[2022-06-01] MEDS ORDERED: Zofran 4 MG/2 ML VIAL ONE (12:30)
[2022-06-01 12:54] LABS: Appearance SLIGHTLY CLOUDY (CLEAR); Bilirubin NEGATIVE (NEGATIVE); Glucose NEGATIVE (NEGATIVE); Ketones NEGATIVE (NEGATIVE); Nitrite NEGATIVE (NEGATIVE); Protein,Urine Dip NEGATIVE (Negative); RBC SMALL Ery/ul (0-5); Specific Gravity 1.025 (1.005-1.025); Urobilinogen 0.2 mg/dL (0-1)
[2022-06-01 12:55] VITALS: BP 120/78
[2022-06-01 12:56] LABS: Bacteria None Seen /HPF (None Seen); Epithelial Cells Few /HPF (None Seen); Hyaline Casts NONE SEEN /LPF (0-2); RBC 0-2 /HPF (0-5)
[2022-06-01 12:57] LABS: Urine Cultured Indicated? NO
[2022-06-01 13:00] LABS: BLOOD UREA NITROGEN 15 mg/dL (7-17); CHLORIDE 107 mmol/L (98-107); Carbon Dioxide 22 mmol/L (22-30); Creatinine 1 0.65 mg/dL (0.52-1.04); EST GLOMERULAR FILTRATION RATE > 60.0 ML/MIN; Glucose 86 mg/dL (74-106); LIPASE 41 U/L (23-300); Potassium 4.2 mmol/L (3.5-5.1); SODIUM 136 mmol/L (137-145)
[2022-06-01 13:15] VITALS: PULSE 73
--- NOTE | 2022-06-01 13:18 | XRAY ---
Indication: Pneumonia. Comparison: None PA/lateral chest demonstrates normal heart and lungs. Bony thorax intact with minimal dextroscoliosis.
--- NOTE | 2022-06-01 13:20 | ERPHSYRPT ---
- History of Present Illness Time Seen by Provider: 06/01/22 11:34 Source: patient Exam Limitations: no limitations Patient Subjective Stated Complaint: Pt was on Seroquel 200mg TID and she ran out 4 days ago and can't get a new script for them until she starts with her ps yciatrist on 06/13/[address] Castellon and pt began going through w/d's 2 days ago with vomiting and diarrhea and she is now dehydrated and she is here for some fluids and zofran Triage Nursing Assessment: Pt was brought to the ER by a friend, elenita wnl, rates head pain as 5/10, skin n/w/d, pulses normal, no difficulty breathing, doesn't appear to be in any distress Physician History: Patient is here for being out of her Seroquel. Patient denies any suicidal or homicidal ideation. She has been out of her Seroquel for 3 days. Patient has follow-up with her psychiatrist at the first week of of June. Today she feels like she has some nausea, diarrhea, vomiting. She states that she is not . She has no falls or other trauma. She has no fever, cough, cold, congestion. Allergies/Adverse Reactions: cephalexin Allergy (Verified 06/01/22 11:52) Sulfa (Sulfonamide Antibiotics) Adverse Reaction (Mild, Verified 06/01/22 11:52) Nausea headache, lightheadness, vomiting Home Medications: Vits W-Ca,Fe,FA(<1Mg) [] 1 tab PO DAILY 12/14/17 [History] Bupropion HCl Xl 150 mg [Wellbutrin XL 150 MG] 150 mg PO DAILY 06/01/22 [History] Sertraline HCl [Zoloft] 25 mg PO DAILY 06/01/22 [History] Hx Tetanus, Diphtheria Vaccination/Date Given: Yes Hx Influenza Vaccination/Date Given: No Hx Pneumococcal Vaccination/Date Given: No Travel Risk - International Travel Have you traveled outside of the country in past 3 weeks: No - Coronavirus Screening Are you exhibiting any of the following symptoms?: No Close contact with a COVID-19 positive Pt in past 14-21 Days: No - Vaccine Status Have you recieved a Covid-19 vaccination: No - Review of Systems Constitutional: No Fever, No Chills Eyes: No Symptoms Ears, Nose, & Throat: No Symptoms Respiratory: No Cough, No Dyspnea Cardiac: No Chest Pain, No Edema, No Syncope Abdominal/Gastrointestinal: Nausea, Vomiting, Diarrhea, No Abdominal Pain Genitourinary Symptoms: No Dysuria Musculoskeletal: No Back Pain, No Neck Pain Skin: No Rash Neurological: No Dizziness, No Focal Weakness, No Sensory Changes Psychological: No Symptoms Endocrine: No Symptoms All Other Systems: Reviewed and Negative - Past Medical History Pertinent Past Medical History: Yes Neurological History: No Pertinent History ENT History: No Pertinent History Cardiac History: No Pertinent History Respiratory History: Asthma, Other Endocrine Medical History: No Pertinent History Musculoskeletal History: Fractures GI Medical History: Other History: No Pertinent History Psycho-Social History: Anxiety, Attention Deficit Disorder, Bipolar, Depression Female Reproductive Disorders: Other Other Medical History: pt states she has recently been diagnosed with pulmonary htn by dr alannah weaver. Ectopic 07/20/2017, PELVIC SCAR TISSUE ON OVARIES. PT STATES THAT WHEN SHE WAS 11-12 YEARS OLD HER INTESTINES LOOPED AND HAD TO BE CHECKED OUT IN [place] JUST HAD TO LET THE BOWELS REST NO SURGERIES, PAST BROKEN WRIST, KNEE, THUMB NO SURGERIES, CHLAMYDIA 2-3 MONTHS AGO - Past Surgical History Past Surgical History: Yes Neuro Surgical History: No Pertinent History Cardiac: No Pertinent History Respiratory: No Pertinent History Gastrointestinal: Other Genitourinary: No Pertinent History Other Surgical History: gastric surgery as - Social History Smoking Status: Former smoker How long have you smoked: 2 years Exposure to second hand smoke: Yes Drug Use: marijuana Patient Lives Alone: No - Female History Hx Now: No (depo) - Nursing Vital Signs Nursing Vital Signs: Initial Vital Signs Temperature 97.7 F 06/01/22 11:37 Pulse Rate 77 06/01/22 11:37 Blood Pressure 124/81 06/01/22 11:37 O2 Sat by Pulse Oximetry 99 06/01/22 11:37 Pain Scale Pain Intensity 4 - Physical Exam General Appearance: no apparent distress, alert Eye Exam: PERRL/EOMI, eyes nml inspection Ears, Nose, Throat Exam: normal ENT inspection, TMs normal, pharynx normal, moist mucous membranes Neck Exam: normal inspection, non-tender, supple, full range of motion Respiratory Exam: normal breath sounds, lungs clear, No respiratory distress Cardiovascular Exam: regular rate/rhythm, normal heart sounds, normal peripheral pulses Gastrointestinal/Abdomen Exam: soft, normal bowel sounds, other (No abdominal tenderness, rebound, guarding), No tenderness, No mass Back Exam: normal inspection, normal range of motion, No CVA tenderness, No vertebral tenderness Extremity Exam: normal inspection, normal range of motion, pelvis stable Neurologic Exam: alert, oriented x 3, cooperative, normal mood/affect, nml cerebellar function, nml station & gait, sensation nml, No motor deficits Skin Exam: normal color, warm, dry, No rash Lymphatic Exam: No adenopathy SpO2: 99 - Course Nursing assessment & vital signs reviewed: Yes Ordered Tests: Active Orders 24 hr Category Date Time Status IV Insertion STAT Care 06/01/22 11:52 Completed CHEST 2 VIEWS (PA AND LAT) Stat Exams 06/01/22 11:55 Completed BMP Stat Lab 06/01/22 11:52 Completed CBC W DIFF Stat Lab 06/01/22 11:52 Completed HCG,QUALITATIVE URINE Stat Lab 06/01/22 12:19 Completed LIPASE Stat Lab 06/01/22 11:52 Completed Medication Summary Discontinued Medications Generic Name Dose Route Start Last Admin Trade Name Ziaq PRN Reason Stop Dose Admin Sodium Chloride 1,000 mls @ 999 mls/hr 06/01/22 11:52 06/01/22 13:36 Sodium Chloride 0.9% 1000 Ml IV 06/01/22 12:52 Infused .Q1H1M STA Infusion Sodium Chloride Confirm 06/01/22 12:30 Sodium Chloride 0.9% 1000 Ml Administered 06/01/22 12:31 Dose 1,000 mls @ ud .ROUTE .STK-MED ONE Ondansetron HCl 4 mg 06/01/22 11:52 06/01/22 12:31 Ondansetron Hcl 4 Mg/2 Ml Vial IV 06/01/22 11:53 4 mg STAT ONE Administration Ondansetron HCl Confirm 06/01/22 12:30 Ondansetron Hcl 4 Mg/2 Ml Vial Administered 06/01/22 12:31 Dose 4 mg .ROUTE .STK-MED ONE Lab/Rad Data: Laboratory Result Diagrams 06/01/22 11:52 06/01/22 11:52 Laboratory Results 06/01/22 06/01/22 06/01/22 Range/Units 12:19 12:19 11:52 WBC (4.0-10.5) x10^3/uL RBC (4.1-5.4) x10^6/uL Hgb (12.0-16.0) g/dL Hct (35-47) % MCV (78-100) fL MCH (26-32) pg MCHC (32-36) g/dL RDW (11.5-14.0) % Plt Count (150-450) x10^3/uL MPV (7.5-11.0) fL Gran % (36.0-66.0) % Immature Gran % (Auto) (0.00-0.4) % Nucleat RBC Rel Count (0.00-0.1) % Eos # (Auto) (0-0.5) x10^3/uL Immature Gran # (Auto) (0.00-0.03) x10^3u/L Absolute Lymphs (auto) (1.0-4.6) x10^3/uL Absolute Monos (auto) (0.0-1.3) x10^3/uL Absolute Nucleated RBC (0.00-0.01) x10^3u/L Lymphocytes % (24.0-44.0) % Monocytes % (0.0-12.0) % Eosinophils % (0.00-5.0) % Basophils % (0.0-0.4) % Absolute Granulocytes (1.4-6.9) x10^3/uL Basophils # (0-0.4) x10^3/uL Sodium 136 L (137-145) mmol/L Potassium 4.2 (3.5-5.1) mmol/L Chloride 107 (98-107) mmol/L Carbon Dioxide 22 (22-30) mmol/L Anion Gap 11.0 (5-15) MEQ/L BUN 15 (7-17) mg/dL Creatinine 0.65 (0.52-1.04) mg/dL Estimated GFR > 60.0 ML/MIN Glucose 86 (74-106) mg/dL Calcium 9.0 (8.4-10.2) mg/dL Lipase 41 (23-300) U/L Urine Color YELLOW (YELLOW) Urine Appearance SLIGHTLY CLOUDY A (CLEAR) Urine pH 6.0 (5-6) Ur Specific Elmo 1.025 (1.005-1.025) POC Urine Protein Conf NEGATIVE (Negative) Urine Ketones NEGATIVE (NEGATIVE) Urine Nitrite NEGATIVE (NEGATIVE) Urine Bilirubin NEGATIVE (NEGATIVE) Urine Urobilinogen 0.2 (0-1) mg/dL Urine Leukocytes NEGATIVE (NEGATIVE) U Hyaline Cast (Auto) NONE SEEN (0-2) /LPF Urine RBC SMALL A (0-5) Marlo/ul Urine Microscopic RBC 0-2 (0-5) /HPF Urine Microscopic WBC 3-5 (0-5) /HPF Ur Epithelial Cells Few (None Seen) /HPF Urine Bacteria None Seen (None Seen) /HPF Ur Culture Indicated? NO Urine Glucose NEGATIVE (NEGATIVE) mg/dL Urine HCG, Qual NEGATIVE (Negative) 06/01/22 Range/Units 11:52 WBC 6.5 (4.0-10.5) x10^3/uL RBC 4.66 (4.1-5.4) x10^6/uL Hgb 13.6 (12.0-16.0) g/dL Hct 41.0 (35-47) % MCV 88.0 (78-100) fL MCH 29.2 (26-32) pg MCHC 33.2 (32-36) g/dL RDW 13.5 (11.5-14.0) % Plt Count 351 (150-450) x10^3/uL MPV 10.9 (7.5-11.0) fL Gran % 53.5 (36.0-66.0) % Immature Gran % (Auto) 0.3 (0.00-0.4) % Nucleat RBC Rel Count 0.0 (0.00-0.1) % Eos # (Auto) 0.10 (0-0.5) x10^3/uL Immature Gran # (Auto) 0.02 (0.00-0.03) x10^3u/L Absolute Lymphs (auto) 2.55 (1.0-4.6) x10^3/uL Absolute Monos (auto) 0.30 (0.0-1.3) x10^3/uL Absolute Nucleated RBC 0.00 (0.00-0.01) x10^3u/L Lymphocytes % 39.5 (24.0-44.0) % Monocytes % 4.6 (0.0-12.0) % Eosinophils % 1.5 (0.00-5.0) % Basophils % 0.6 (0.0-0.4) % Absolute Granulocytes 3.45 (1.4-6.9) x10^3/uL Basophils # 0.04 (0-0.4) x10^3/uL Sodium (137-145) mmol/L Potassium (3.5-5.1) mmol/L Chloride (98-107) mmol/L Carbon Dioxide (22-30) mmol/L Anion Gap (5-15) MEQ/L BUN (7-17) mg/dL Creatinine (0.52-1.04) mg/dL Estimated GFR ML/MIN Glucose (74-106) mg/dL Calcium (8.4-10.2) mg/dL Lipase (23-300) U/L Urine Color (YELLOW) Urine Appearance (CLEAR) Urine pH (5-6) Ur Specific Elmo (1.005-1.025) POC Urine Protein Conf (Negative) Urine Ketones (NEGATIVE) Urine Nitrite (NEGATIVE) Urine Bilirubin (NEGATIVE) Urine Urobilinogen (0-1) mg/dL Urine Leukocytes (NEGATIVE) U Hyaline Cast (Auto) (0-2) /LPF Urine RBC (0-5) Marlo/ul Urine Microscopic RBC (0-5) /HPF Urine Microscopic WBC (0-5) /HPF Ur Epithelial Cells (None Seen) /HPF Urine Bacteria (None Seen) /HPF Ur Culture Indicated? Urine Glucose (NEGATIVE) mg/dL Urine HCG, Qual (Negative) - Progress Progress: improved Progress Note: 06/01/22 15:17 differential diagnosis includes kidney stone, compression fracture, infection, UTI, triple AAA - basic labs including: CBC, lipase, CMP, UA, UPT - insert IV for fluids, pain meds, nausea control - consider imaging: CT ab/pelvis Patient feels improved with medication. Labs within normal limits. Therefore, will not obtain a CT or ultrasound today. Patient feels comfortable with this plan. She will follow-up with her psychiatrist as needed. She may return here sooner for any mental health issues or new changes. - Departure Departure Disposition: Home Clinical Impression: Nausea and vomiting Condition: Stable Critical Care Time: No Referrals: ISIDORO GRAF [Primary Care Provider] - Follow up/PCP as directed Instructions: Nausea and Vomiting, Adult (DC)
== END 2022-06-01 13:59 | disposition home or self-care (01) ==
LOC: ED 11:29
DX: R11.2 Nausea with vomiting, unspecified (principal); R19.7 Diarrhea, unspecified; Z79.899 Other long term (current) drug therapy; Z28.310 Unvaccinated for COVID-19
CPT/HCPCS: 36000; 36415; 71046; 80048; 81015; 81025; 83690; 85025; 96360; 96374; 99284; J2405

== ENCOUNTER 2022-06-07 19:27 | Emergency (ER) | payer OTHER ==
--- NOTE | 2022-06-07 19:54 | ERPHSYRPT ---
- History of Present Illness Time Seen by Provider: 06/07/22 19:54 Source: patient Exam Limitations: no limitations Physician History: This is a 22-year-old white female who is right-handed and accidentally slammed her right wrist in a closing door. This occurred prior to arrival. Occurred: just prior to arrival Method of Injury: direct blow Quality: aching Severity of Pain-Max: mild Severity of Pain-Current: mild Extremities Pain Location: wrist: right Modifying Factors: Improves With: movement Associated Symptoms: none Allergies/Adverse Reactions: cephalexin Allergy (Verified 06/07/22 19:54) Sulfa (Sulfonamide Antibiotics) Adverse Reaction (Mild, Verified 06/07/22 19:54) Nausea headache, lightheadness, vomiting Home Medications: Bupropion HCl Xl 150 mg [Wellbutrin XL 150 MG] 150 mg PO DAILY 06/01/22 [History] Sertraline HCl [Zoloft] 25 mg PO DAILY 06/01/22 [History] Quetiapine Fumarate [Seroquel] 50 mg PO DAILY 06/07/22 [History] Hx Tetanus, Diphtheria Vaccination/Date Given: Yes Hx Influenza Vaccination/Date Given: No Hx Pneumococcal Vaccination/Date Given: No Travel Risk - International Travel Have you traveled outside of the country in past 3 weeks: No - Coronavirus Screening Are you exhibiting any of the following symptoms?: No Close contact with a COVID-19 positive Pt in past 14-21 Days: No - Vaccine Status Have you recieved a Covid-19 vaccination: No - Review of Systems Constitutional: No Symptoms Eyes: No Symptoms Ears, Nose, & Throat: No Symptoms Respiratory: No Symptoms Cardiac: No Symptoms Abdominal/Gastrointestinal: No Symptoms Genitourinary Symptoms: No Symptoms Musculoskeletal: Injury (Right wrist) Skin: No Symptoms Neurological: No Symptoms Psychological: No Symptoms Endocrine: No Symptoms Hematologic/Lymphatic: No Symptoms Immunological/Allergic: No Symptoms All Other Systems: Reviewed and Negative - Past Medical History Pertinent Past Medical History: Yes Neurological History: No Pertinent History ENT History: No Pertinent History Cardiac History: No Pertinent History Respiratory History: Asthma, Other Endocrine Medical History: No Pertinent History Musculoskeletal History: Fractures GI Medical History: Other History: No Pertinent History Psycho-Social History: Anxiety, Attention Deficit Disorder, Bipolar, Depression Female Reproductive Disorders: Other Other Medical History: pt states she has recently been diagnosed with pulmonary htn by dr alannah weaver. Ectopic 07/20/2017, PELVIC SCAR TISSUE ON OVARIES. PT STATES THAT WHEN SHE WAS 11-12 YEARS OLD HER INTESTINES LOOPED AND HAD TO BE CHECKED OUT IN [place] JUST HAD TO LET THE BOWELS REST NO SURGERIES, PAST BROKEN WRIST, KNEE, THUMB NO SURGERIES, CHLAMYDIA 2-3 MONTHS AGO - Past Surgical History Past Surgical History: Yes Neuro Surgical History: No Pertinent History Cardiac: No Pertinent History Respiratory: No Pertinent History Gastrointestinal: Other Genitourinary: No Pertinent History Other Surgical History: gastric surgery as infant - Social History Smoking Status: Former smoker How long have you smoked: 2 years Exposure to second hand smoke: Yes Drug Use: marijuana Patient Lives Alone: No - Nursing Vital Signs Nursing Vital Signs: Initial Vital Signs Temperature 98.7 F 06/07/22 19:56 Pulse Rate 79 06/07/22 19:56 Respiratory Rate 18 06/07/22 19:56 Blood Pressure 111/79 06/07/22 19:56 O2 Sat by Pulse Oximetry 99 06/07/22 19:56 Pain Scale Pain Intensity 7 - Physical Exam General Appearance: no apparent distress, alert, anxiety Eyes, Ears, Nose, Throat Exam: normal ENT inspection, moist mucous membranes Neck Exam: normal inspection, non-tender, supple, full range of motion Cardiovascular/Respiratory Exam: chest non-tender, no respiratory distress Abdominal Exam: non-tender Back Exam: normal inspection, normal range of motion, No CVA tenderness, No vertebral tenderness Shoulder Exam: normal inspection, non-tender, no evidence of injury, normal ROM Elbow/Forearm Exam: normal inspection, non-tender, no evidence of injury, normal ROM Wrist Exam: normal ROM (Right), bone tenderness (Right), ecchymosis (Right), soft tissue tenderness (Right), swelling (Right wrist) Hand Exam: normal inspection, non-tender, no evidence of injury, normal ROM Neuro/Tendon Exam: normal sensation, normal motor functions, normal tendon functions, responds to pain, no evidence tendon injury Mental Status Exam: alert, oriented x 3, cooperative Skin Exam: normal color, warm, dry SpO2 Interpretation: normal O2 Delivery: Room Air - Course Nursing assessment & vital signs reviewed: Yes Ordered Tests: Active Orders 24 hr Category Date Time Status Robin Bandage Application -[facility] STAT Care 06/07/22 20:52 Active WRIST (MIN 3 VIEWS) Stat Exams 06/07/22 20:12 Taken - Progress Progress: unchanged Progress Note: 06/07/22 20:56 X-ray of right wrist shows no acute fracture or dislocation. This x-ray was interpreted by me. Medical decision making: This patient's medical issue is a low complexity. This is based on obtaining a history from the patient and performing a focused physical examination. Based on the above I ordered the right wrist x-ray. I interpreted the x-ray. Based on the results of the x-ray plan is for outpatient follow-up with primary care physician or orthopedic physician of choice. I also discussed with the patient the discharge planning of ice pack to the area 3 times a day for the next 48 hours and alternating Tylenol and ibuprofen. Counseled pt/family regarding: diagnosis, need for follow-up, rad results - Departure Departure Disposition: Home Clinical Impression: Contusion of right wrist, initial encounter, Right wrist sprain Condition: Stable Critical Care Time: No Referrals: ISIDORO GRAF [Primary Care Provider] - Follow up/PCP as directed Additional Instructions: Ice pack to area 3 times a day for the next 48 hours. Alternate Tylenol and ibuprofen for pain control. Wear the Velcro splint you requested for pain control. May follow-up with [facility] orthopedic clinic or orthopedic physician of choice for persistent pain beyond 72 hours
[2022-06-07 21:03] VITALS: BP 111/72; PULSE 72; O2SAT 97
--- NOTE | 2022-06-08 08:52 | XRAY ---
Indication: Pain following injury. Comparison: None 3 view right wrist obtained. No bony, articular, or soft tissue abnormalities.
== END 2022-06-07 21:10 | disposition home or self-care (01) ==
LOC: ED 19:27
DX: S60.211A Contusion of right wrist, initial encounter (principal); S63.501A Unspecified sprain of right wrist, initial encounter; W23.0XXA Caught, crushed, jammed, or pinched between moving objects, initial encounter; Z79.899 Other long term (current) drug therapy; Z28.310 Unvaccinated for COVID-19
CPT/HCPCS: 73110; 99283; L3908

== ENCOUNTER 2022-11-29 09:57 | Emergency (ER) | payer OTHER ==
[2022-11-29 10:20] VITALS: PULSE 88; RESP 18; TEMP 97.2
--- NOTE | 2022-11-29 11:19 | XRAY ---
Indication: Bleeding and cramping. Two-dimensional transvaginal early OB ultrasound performed. Comparison: None for this . Uterus anteverted without focal solid/cystic mass. No intrauterine gestational sac, pole, or heart tones. Endometrial stripe measures 6 mm. Left and right ovaries are sonographically unremarkable. No suspicious adnexal mass or free fluid. Impression: Negative for intrauterine/ectopic . No acute findings.
--- NOTE | 2022-11-29 11:37 | ERPHSYRPT ---
- History of Present Illness Time Seen by Provider: 11/29/22 11:41 Source: patient Exam Limitations: no limitations Patient Subjective Stated Complaint: pt here for vaginal bleeding since this morning, she states she is approx 6-7 weeks Triage Nursing Assessment: pt alert, resp easy, skin w/d/p. abd soft, no edema noted Physician History: Patient is a 22-year-old female M3 presents to our ED for a pelvic ultrasound. Patient states she believes to be 6 to 7 weeks based on home test and LMP. LMP was October 06. Patient states she woke up this morning with vaginal bleeding and cramping. Patient progressed a large blood clot which she believes was the fetus. She does not have this blood clot with her today. Patient declined pelvic exam. Patient declined laboratory work-up. Patient states that she does not want to be poked with a needle. No active bleeding at this time per patient. No nausea vomiting or diaphoresis. Patient declined pain medication. patient voices no other complaints or concerns at this time. Portions of this note were created with voice recognition technology. There may be grammatical, spelling, punctuation or sound alike errors Timing/Duration: today Severity: moderate Modifying Factors: Improves With: nothing Associated Symptoms: denies symptoms Allergies/Adverse Reactions: cephalexin Allergy (Verified 11/29/22 10:04) Sulfa (Sulfonamide Antibiotics) Adverse Reaction (Mild, Verified 11/29/22 10:04) Nausea headache, lightheadness, vomiting Home Medications: No Reportable Medications [No Reported Medications] 11/29/22 [History] Hx Tetanus, Diphtheria Vaccination/Date Given: Yes Hx Influenza Vaccination/Date Given: No Hx Pneumococcal Vaccination/Date Given: No Immunizations Up to Date: Yes Travel Risk - International Travel Have you traveled outside of the country in past 3 weeks: No - Coronavirus Screening Are you exhibiting any of the following symptoms?: No Close contact with a COVID-19 positive Pt in past 14-21 Days: No - Vaccine Status Have you recieved a Covid-19 vaccination: No - Review of Systems Constitutional: No Symptoms, No Fever, No Chills Eyes: No Symptoms Ears, Nose, & Throat: No Symptoms Respiratory: No Symptoms, No Cough, No Dyspnea Cardiac: No Symptoms, No Chest Pain, No Edema, No Syncope Abdominal/Gastrointestinal: No Symptoms, No Abdominal Pain, No Nausea, No Vomiting, No Diarrhea Genitourinary Symptoms: No Symptoms, No Dysuria Musculoskeletal: No Symptoms, No Back Pain, No Neck Pain Skin: No Symptoms, No Rash Neurological: No Symptoms, No Dizziness, No Focal Weakness, No Sensory Changes Psychological: No Symptoms Endocrine: No Symptoms Hematologic/Lymphatic: No Symptoms Immunological/Allergic: No Symptoms All Other Systems: Reviewed and Negative - Past Medical History Pertinent Past Medical History: Yes Neurological History: No Pertinent History ENT History: No Pertinent History Cardiac History: No Pertinent History Respiratory History: Asthma, Other Endocrine Medical History: No Pertinent History Musculoskeletal History: Fractures GI Medical History: Other History: No Pertinent History Psycho-Social History: Anxiety, Attention Deficit Disorder, Bipolar, Depression Female Reproductive Disorders: Other Other Medical History: pt states she has recently been diagnosed with pulmonary htn by dr alannah weaver. Ectopic 07/20/2017, PELVIC SCAR TISSUE ON OVARIES. PT STATES THAT WHEN SHE WAS 11-12 YEARS OLD HER INTESTINES LOOPED AND HAD TO BE CHECKED OUT IN [place] JUST HAD TO LET THE BOWELS REST NO SURGERIES, PAST BROKEN WRIST, KNEE, THUMB NO SURGERIES, CHLAMYDIA 2-3 MONTHS AGO - Past Surgical History Past Surgical History: Yes Neuro Surgical History: No Pertinent History Cardiac: No Pertinent History Respiratory: No Pertinent History Gastrointestinal: Other Genitourinary: No Pertinent History Other Surgical History: gastric surgery as infant - Social History Smoking Status: Former smoker How long have you smoked: 2 years Exposure to second hand smoke: Yes Drug Use: marijuana Patient Lives Alone: No - Female History Hx Last Menstrual Period: october 06 Hx Now: Yes Gestational Age: 4 - Nursing Vital Signs Nursing Vital Signs: Initial Vital Signs Temperature 97.2 F 11/29/22 10:19 Pulse Rate 88 11/29/22 10:19 Respiratory Rate 18 11/29/22 10:19 Blood Pressure 116/69 11/29/22 10:19 O2 Sat by Pulse Oximetry 99 11/29/22 10:19 Pain Scale Pain Intensity 6 - Physical Exam General Appearance: no apparent distress, alert Eye Exam: PERRL/EOMI, eyes nml inspection Ears, Nose, Throat Exam: normal ENT inspection, TMs normal, pharynx normal, moist mucous membranes Neck Exam: normal inspection, non-tender, supple, full range of motion Respiratory Exam: normal breath sounds, lungs clear, airway intact, No respiratory distress Cardiovascular Exam: regular rate/rhythm, normal heart sounds, normal peripheral pulses Gastrointestinal/Abdomen Exam: soft, normal bowel sounds, other (Mild suprapubic tenderness.), No tenderness, No mass Back Exam: normal inspection, normal range of motion, No CVA tenderness, No vertebral tenderness Extremity Exam: normal inspection, normal range of motion, pelvis stable Neurologic Exam: alert, oriented x 3, cooperative, normal mood/affect, nml cerebellar function, nml station & gait, sensation nml, No motor deficits Skin Exam: normal color, warm, dry, No rash Lymphatic Exam: No adenopathy SpO2 Interpretation: normal SpO2: 99 O2 Delivery: Room Air - Course Nursing assessment & vital signs reviewed: Yes - Radiology Ultrasound Exam Pelvis Ultrasound: Other (Ultrasound negative for IUP. No acute findings) Ordered Tests: Active Orders 24 hr Category Date Time Status OB <14 WKS 1ST GESTATION [US] Stat Exams 11/29/22 10:23 Completed - Progress Progress: improved Progress Note: Patient a 22-year-old female presents to our ED for evaluation of pelvic cramping and vaginal bleeding. Patient states she is 7 weeks . Patient refused a pelvic exam. Patient only agreeable to an ultrasound. Patient refused blood work to assess for hCG and Rh status. Patient states she does not like to be poked. Pelvic ultrasound shows no IUP. No evidence for ectopic. However cannot be completely excluded without an hCG. Patient refused the blood work. The ultrasound cannot rule out heterotopic versus early ectop ic. Patient states that she had to leave urgently due to a home urgency. Patient left AGAINST MEDICAL ADVICE. Patient is of sound mind. Patient is appropriate to make informed and independent medical decisions. Patient understands that leaving AGAINST MEDICAL ADVICE can result in delayed diagnosis, increased risk of morbidity, mortality, short and long-term disability including . In spite of these risks, patient has decided to leave AGAINST MEDICAL ADVICE. Patient understands that she may return to our ED at any point if she reconsiders. Patient agrees to follow-up with her primary care doctor within 48 hours for reevaluation. Patient voices no other complaints or concerns at this time. We will release patient AGAINST MEDICAL ADVICE per their request. Complexity of problems addressed is moderate acute complicated No critical care time Composite data reviewed and analyzed is moderate. Ultrasound ordered. Results reviewed and clinically correlated with physical exam findings. Risk of complication and or risk of morbidity/mortality of patient management is low. Patient discharged AGAINST MEDICAL ADVICE. Patient declined blood work to assess hCG and Rh status. Patient refused pelvic exam. Patient refuses pain medication. Vital stable. Time spent to discharge patient approximately 10 minutes. Portions of this note were created with voice recognition technology. There may be grammatical, spelling, punctuation or sound alike errors 11/29/22 11:51 Counseled pt/family regarding: diagnosis, need for follow-up, rad results - Departure Departure Disposition: AMA Clinical Impression: Pelvic cramping, Vaginal bleeding Condition: Stable Critical Care Time: No Referrals: DOCTOR,NO FAMILY [Primary Care Provider] - Follow up/PCP as directed UVALDO PARK MD [ACTIVE STAFF] - Follow up/PCP as directed Additional Instructions: Discharge/Care Plan MICHELLE HUFF ANN was seen on 11/29/22 in the Emergency Room. The patient was counseled regarding Diagnosis,Lab results, Imaging studies, need for follow up and when to return to the Emergency Room. Prescriptions given: Discharge Note I have spoken with the patient and/or caregivers. I have explained the patient's condition, diagnosis and treatment plan based on the information available to me at this time. I have answered the patient's and/or caregiver's questions and addressed any concerns. The patient and/or caregivers have as good understanding of the patient's diagnosis, condition and treatment plan as can be expected at this point. The vital signs have been stable. The patient's condition is stable and appropriate for discharge from the emergency department. The patient will pursue further outpatient evaluation with the primary care physician or other designated or consulting physician as outlined in the discharge instructions. The patient and/or caregivers are agreeable to this plan of care and follow-up instructions have been explained in detail. The patient and/or caregivers have received these instruction. The patient/and or caregivers are aware that any significant change in condition or worsening of symptoms should prompt an immediate return to this or the closest emergency department or call 911.
[2022-11-29 12:02] VITALS: BP 120/71
[2022-11-29 12:05] VITALS: O2SAT 99
== END 2022-11-29 11:55 | disposition left against medical advice (07) ==
LOC: ED 09:57
DX: N93.9 Abnormal uterine and vaginal bleeding, unspecified (principal); R10.2 Pelvic and perineal pain; Z28.310 Unvaccinated for COVID-19
CPT/HCPCS: 76801; 99282

== ENCOUNTER 2023-05-26 09:27 | Emergency (ER) | payer OTHER ==
--- NOTE | 2023-05-26 09:44 | ERPHSYRPT ---
- History of Present Illness Time Seen by Provider: 05/26/23 09:43 Source: patient Exam Limitations: no limitations Physician History: This is a 23-year-old M3 white female patient of Dr. Mccormick who presents with history of being (last menstrual period the last week in March 2023). She recently took a test and it was positive. Yesterday she was having pelvic pain and passage of blood and blood clot. Today, she also has had significant vaginal bleeding. Patient has a history of vaginal bleeding and passage of blood clots during her pregnancies. She also has a history of ectopic pregnancies in the past. Patient denies chest pain. Patient denies shortness of breath. Patient is taking folic acid and progesterone. Timing/Duration: yesterday Activites at Onset: none Quality: cramping Onset Location: suprapubic, pelvic pain Pain Radiation: none Severity of Pain-Max: mild Severity of Pain-Current: mild Prior abdominal problems: none Sexual intercourse history: non-contributory Modifying Factors: Improves With: nothing Associated Symptoms: abdominal pain (Suprapubic and pelvic), , vaginal discharge (Bloody discharge and clots) Allergies/Adverse Reactions: cephalexin Allergy (Verified 05/26/23 09:35) Sulfa (Sulfonamide Antibiotics) Adverse Reaction (Mild, Verified 05/26/23 09:35) Nausea headache, lightheadness, vomiting Home Medications: Folic Acid 1 mg [Folate 1 mg] 1 tab PO DAILY 05/26/23 [History] Progesterone, Micronized [Progesterone] 1 tab PO DAILY 05/26/23 [History] Hx Tetanus, Diphtheria Vaccination/Date Given: Yes Hx Influenza Vaccination/Date Given: No Hx Pneumococcal Vaccination/Date Given: No Travel Risk - International Travel Have you traveled outside of the country in past 3 weeks: No - Coronavirus Screening Are you exhibiting any of the following symptoms?: No Close contact with a COVID-19 positive Pt in past 14-21 Days: No - Vaccine Status Have you recieved a Covid-19 vaccination: No - Review of Systems Constitutional: No Symptoms Eyes: No Symptoms Ears, Nose, & Throat: No Symptoms Respiratory: No Symptoms Cardiac: No Symptoms Abdominal/Gastrointestinal: Abdominal Pain, No Nausea, No Vomiting, No Diarrhea, No Constipation Genitourinary Symptoms: Vaginal Bleeding Musculoskeletal: No Symptoms Skin: No Symptoms Neurological: No Symptoms Psychological: No Symptoms Endocrine: No Symptoms Hematologic/Lymphatic: No Symptoms Immunological/Allergic: No Symptoms All Other Systems: Reviewed and Negative - Past Medical History Pertinent Past Medical History: Yes Neurological History: No Pertinent History ENT History: No Pertinent History Cardiac History: No Pertinent History Respiratory History: Asthma, Other Endocrine Medical History: No Pertinent History Musculoskeletal History: Fractures GI Medical History: Other History: No Pertinent History Psycho-Social History: Anxiety, Attention Deficit Disorder, Bipolar, Depression Female Reproductive Disorders: Other Other Medical History: pt states she has recently been diagnosed with pulmonary htn by dr alannah weaver. Ectopic 07/20/2017, PELVIC SCAR TISSUE ON OVARIES. PT STATES THAT WHEN SHE WAS 11-12 YEARS OLD HER INTESTINES LOOPED AND HAD TO BE CHECKED OUT IN [place] JUST HAD TO LET THE BOWELS REST NO SURGERIES, PAST BROKEN WRIST, KNEE, THUMB NO SURGERIES, CHLAMYDIA 2-3 MONTHS AGO - Past Surgical History Past Surgical History: Yes Neuro Surgical History: No Pertinent History Cardiac: No Pertinent History Respiratory: No Pertinent History Gastrointestinal: Other Genitourinary: No Pertinent History Other Surgical History: gastric surgery as - Social History Smoking Status: Former smoker How long have you smoked: 2 years Exposure to second hand smoke: Yes Drug Use: marijuana Patient Lives Alone: No - Nursing Vital Signs Nursing Vital Signs: Initial Vital Signs Temperature 98 F 05/26/23 09:39 Pulse Rate 71 05/26/23 09:39 Respiratory Rate 20 05/26/23 09:39 Blood Pressure 110/74 05/26/23 09:39 O2 Sat by Pulse Oximetry 99 05/26/23 09:39 Pain Scale Pain Intensity 8 - Physical Exam General Appearance: no apparent distress, alert, anxiety, thin Eye Exam: PERRL/EOMI, eyes nml inspection Ears, Nose, Throat Exam: normal ENT inspection, moist mucous membranes Neck Exam: normal inspection, non-tender, supple, full range of motion Respiratory Exam: normal breath sounds, lungs clear, airway intact, No chest tenderness, No respiratory distress Cardiovascular Exam: regular rate/rhythm, normal heart sounds, normal peripheral pulses Gastrointestinal/Abdomen Exam: soft, normal bowel sounds, tenderness (Mild to palpation in the suprapubic region), No guarding, No rebound Pelvic Exam: not done Rectal Exam: not done Back Exam: normal inspection, normal range of motion, No CVA tenderness, No vertebral tenderness Extremity Exam: normal inspection, normal range of motion, pelvis stable Neurologic Exam: alert, oriented x 3, cooperative, 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 tested, normal mood/affect, nml cerebellar function, nml station & gait, sensation nml Skin Exam: normal color, warm, dry Lymphatic Exam: No adenopathy SpO2 Interpretation: normal O2 Delivery: Room Air - Course Nursing assessment & vital signs reviewed: Yes Ordered Tests: Active Orders 24 hr Category Date Time Status OB <14 WKS 1ST GESTATION [US] Stat Exams 05/26/23 09:50 Completed CBC W DIFF Stat Lab 05/26/23 10:02 Completed CMP Stat Lab 05/26/23 10:02 Completed CULTURE,URINE Stat Lab 05/26/23 09:56 Received HCG, Quantitative (Inhouse) Stat Lab 05/26/23 10:02 Received PROTIME WITH INR Stat Lab 05/26/23 10:02 Completed UA W/RFX UR CULTURE Stat Lab 05/26/23 09:56 Completed Lab/Rad Data: Laboratory Result Diagrams 05/26/23 10:02 05/26/23 10:02 Laboratory Results 05/26/23 05/26/23 05/26/23 Range/Units 10:02 10:02 10:02 WBC 6.5 (4.0-10.5) x10^3/uL RBC 4.57 (4.1-5.4) x10^6/uL Hgb 13.1 (12.0-16.0) g/dL Hct 41.1 (35-47) % MCV 89.9 (78-100) fL MCH 28.7 (26-32) pg MCHC 31.9 L (32-36) g/dL RDW 12.8 (11.5-14.0) % Plt Count 296 (150-450) x10^3/uL MPV 11.3 H (7.5-11.0) fL Gran % 54.6 (36.0-66.0) % Immature Gran % (Auto) 0.3 (0.00-0.4) % Nucleat RBC Rel Count 0.0 (0.00-0.1) % Eos # (Auto) 0.19 (0-0.5) x10^3/uL Immature Gran # (Auto) 0.02 (0.00-0.03) x10^3u/L Absolute Lymphs (auto) 2.30 (1.0-4.6) x10^3/uL Absolute Monos (auto) 0.37 (0.0-1.3) x10^3/uL Absolute Nucleated RBC 0.00 (0.00-0.01) x10^3u/L Lymphocytes % 35.6 (24.0-44.0) % Monocytes % 5.7 (0.0-12.0) % Eosinophils % 2.9 (0.00-5.0) % Basophils % 0.9 (0.0-0.4) % Absolute Granulocytes 3.52 (1.4-6.9) x10^3/uL Basophils # 0.06 (0-0.4) x10^3/uL PT 11.1 (9.4-12.5) SECONDS INR 1.02 (0.8-3.0) Sodium 140 (137-145) mmol/L Potassium 4.0 (3.5-5.1) mmol/L Chloride 108 H (98-107) mmol/L Carbon Dioxide 25 (22-30) mmol/L Anion Gap 11.0 (5-15) MEQ/L BUN 8 (7-17) mg/dL Creatinine 0.80 (0.52-1.04) mg/dL Estimated GFR 104.8 ML/MIN Glucose 83 (74-106) mg/dL Calcium 9.5 (8.4-10.2) mg/dL Total Bilirubin 0.60 (0.2-1.3) mg/dL AST 21 (14-36) U/L ALT 22 (0-35) U/L Alkaline Phosphatase 64 (38-126) U/L Serum Total Protein 7.5 (6.3-8.2) g/dL Albumin 4.4 (3.5-5.0) g/dL Urine Color (Yellow) Urine Appearance (Clear) Urine pH (4.6-8.0) Ur Specific [place] (1.005-1.030) Urine Protein (Negative) Urine Glucose (UA) (Negative) mg/dL Urine Ketones (Negative) Urine Blood (Negative) Urine Nitrite (Negative) Urine Bilirubin (Negative) Urine Urobilinogen (0.2) mg/dL Ur Leukocyte Esterase (Negative) U Hyaline Cast (Auto) (0-2) /LPF Urine Microscopic RBC (0-5) /HPF Urine Microscopic WBC (0-5) /HPF Ur Epithelial Cells (None Seen) /HPF Urine Bacteria (None Seen) /HPF Urine Culture Reflexed (NO) 05/26/23 Range/Units 09:56 WBC (4.0-10.5) x10^3/uL RBC (4.1-5.4) x10^6/uL Hgb (12.0-16.0) g/dL Hct (35-47) % MCV (78-100) fL MCH (26-32) pg MCHC (32-36) g/dL RDW (11.5-14.0) % Plt Count (150-450) x10^3/uL MPV (7.5-11.0) fL Gran % (36.0-66.0) % Immature Gran % (Auto) (0.00-0.4) % Nucleat RBC Rel Count (0.00-0.1) % Eos # (Auto) (0-0.5) x10^3/uL Immature Gran # (Auto) (0.00-0.03) x10^3u/L Absolute Lymphs (auto) (1.0-4.6) x10^3/uL Absolute Monos (auto) (0.0-1.3) x10^3/uL Absolute Nucleated RBC (0.00-0.01) x10^3u/L Lymphocytes % (24.0-44.0) % Monocytes % (0.0-12.0) % Eosinophils % (0.00-5.0) % Basophils % (0.0-0.4) % Absolute Granulocytes (1.4-6.9) x10^3/uL Basophils # (0-0.4) x10^3/uL PT (9.4-12.5) SECONDS INR (0.8-3.0) Sodium (137-145) mmol/L Potassium (3.5-5.1) mmol/L Chloride (98-107) mmol/L Carbon Dioxide (22-30) mmol/L Anion Gap (5-15) MEQ/L BUN (7-17) mg/dL Creatinine (0.52-1.04) mg/dL Estimated GFR ML/MIN Glucose (74-106) mg/dL Calcium (8.4-10.2) mg/dL Total Bilirubin (0.2-1.3) mg/dL AST (14-36) U/L ALT (0-35) U/L Alkaline Phosphatase (38-126) U/L Serum Total Protein (6.3-8.2) g/dL Albumin (3.5-5.0) g/dL Urine Color Red A (Yellow) Urine Appearance Turbid A (Clear) Urine pH 5.0 (4.6-8.0) Ur Specific [place] 1.020 (1.005-1.030) Urine Protein 30 (Negative) Urine Glucose (UA) Negative (Negative) mg/dL Urine Ketones Negative (Negative) Urine Blood Moderate A (Negative) Urine Nitrite Negative (Negative) Urine Bilirubin Small A (Negative) Urine Urobilinogen 0.2 (0.2) mg/dL Ur Leukocyte Esterase Moderate A (Negative) U Hyaline Cast (Auto) NONE SEEN (0-2) /LPF Urine Microscopic RBC >100 A (0-5) /HPF Urine Microscopic WBC 21-50 A (0-5) /HPF Ur Epithelial Cells Rare (None Seen) /HPF Urine Bacteria Rare A (None Seen) /HPF Urine Culture Reflexed YES (NO) - Progress Progress: improved, re-examined Air Movement: good Progress Note: 05/26/23 09:57 This patient's medical issue is 1 of moderate complexity. The level complexity and the workup performed is based on review of the patient's past medical history, review of the patient's medication list, review of the patient's drug allergy list, history of present illness and physical findings on examination. The workup includes CBC, CMP, quantitative hCG, urinalysis, PT/INR, and OB ultrasound 05/26/23 10:39 I interpreted the laboratory data results in this patient. The patient definitely has a urinary tract infection. We are awaiting the beta-hCG result. 05/26/23 10:45 OB less than 14 weeks ultrasound was interpreted by the radiologist and I reviewed the impression. Study is negative for intrauterine or ectopic pre gnancy. The right ovary has a clinical picture consistent with viscous hemorrhagic cyst. No free fluid present Blood Culture(s) Obtained: No Antibiotics given: Yes (Prescription remotely sent to patient's pharmacy) Counseled pt/family regarding: lab results, diagnosis, need for follow-up, rad results Medical Desision Making - Diagnostic Testing Diagnostic test were ordered, analyzed, and reviewed by me: Yes Radiological Interpretation: Reviewed by me, Teleradiologist Report - Risk of complications The pt has a mod risk of morbidity or mortality based on: Need for prescription drug management - Departure Departure Disposition: Home Clinical Impression: Vaginal bleeding during , UTI (urinary tract infection) during , Hemorrhagic cyst of right ovary Condition: Stable Critical Care Time: No Referrals: DOCTOR,NO FAMILY [Primary Care Provider] - Follow up/PCP as directed Additional Instructions: Drink plenty of fluids. Take your antibiotics as prescribed. Call your manager learning today to make arrangements for follow-up appointment for further evaluation and management. Prescriptions: Nitrofurantoin Macro 100 mg [Macrobid 100MG Capsule] 100 mg PO BID 5 Days #10 cap
[2023-05-26 09:56] VITALS: BP 110/74; TEMP 98
[2023-05-26 10:07] LABS: Absolute Neutrophil Ct (ANC) 3.52 x10^3/uL (1.4-6.9); BASOPHIL % 0.9 % (0.0-0.4); Basophil (Absolute #) 0.06 x10^3/uL (0-0.4); Eosinophil % 2.9 % (0.00-5.0); Eosinophil (Absolute #) 0.19 x10^3/uL (0-0.5); Hematocrit 41.1 % (35-47); Hemoglobin 13.1 g/dL (12.0-16.0); IMMATURE GRAN # 0.02 x10^3u/L (0.00-0.03); IMMATURE GRAN % 0.3 % (0.00-0.4); Lymphocytes % 35.6 % (24.0-44.0); Mean Cell Volume 89.9 fL (78-100); Mean Corpuscular Hemoglobin 28.7 pg (26-32); Mean Corpuscular Hgb Concent. 31.9 g/dL (32-36); Mean Platelet Volume 11.3 fL (7.5-11.0); Monocyte (Absolute #) 0.37 x10^3/uL (0.0-1.3); Monocytes % 5.7 % (0.0-12.0); Neutrophil % 54.6 % (36.0-66.0); Platelet Count 296 x10^3/uL (150-450); Red Blood Count 4.57 x10^6/uL (4.1-5.4); Red Cell Distribution Width 12.8 % (11.5-14.0); White Blood Count 6.5 x10^3/uL (4.0-10.5)
[2023-05-26 10:18] LABS: Appearance Turbid (Clear); Bacteria Rare /HPF (None Seen); Bilirubin Small (Negative); Blood Moderate (Negative); Epithelial Cells Rare /HPF (None Seen); Glucose, Urine Negative (Negative); Hyaline Casts NONE SEEN /LPF (0-2); Ketones Negative (Negative); Leukocyte Esterase Moderate (Negative); Nitrite Negative (Negative); Protein,Urine Dip 30 (Negative); RBC >100 /HPF (0-5); Urobilinogen 0.2 mg/dL (0.2); WBC 21-50 /HPF (0-5)
[2023-05-26 10:19] LABS: ADD URINE CULTURE? YES (NO)
[2023-05-26 10:31] LABS: INR 1.02 (0.8-3.0); PROTIME 11.1 SECONDS (9.4-12.5)
[2023-05-26 10:33] LABS: ALBUMIN 4.4 g/dL (3.5-5.0); BILIRUBIN,TOTAL 0.6 mg/dL (0.2-1.3); Calcium 9.5 mg/dL (8.4-10.2); Creatinine 1 0.8 mg/dL (0.52-1.04); EST GLOMERULAR FILTRATION RATE 104.8 ML/MIN; Total Protein 7.5 g/dL (6.3-8.2)
--- NOTE | 2023-05-26 10:40 | XRAY ---
Indication: Vaginal bleeding. History of ectopic . Two-dimensional transvaginal early OB ultrasound performed. Comparison: None for this . Uterus retroflexed without intrauterine gestational sac, pole, or heart tones. Endometrial stripe measures 6-7 mm without focal endometrial cavity mass or fluid collection. Right ovary demonstrates 4.2 x 3.2 x 3.8 cm heterogeneous cystic mass without abnormal color flow, probably viscous hemorrhagic cyst. Left ovary sonographically normal. No free fluid. Impression: Negative for intrauterine/ectopic . Right ovary heterogeneous cystic mass, probably viscous hemorrhagic cyst and may be safely followed up.
[2023-05-26 11:26] VITALS: PULSE 76; RESP 16; O2SAT 98
== END 2023-05-26 11:26 | disposition home or self-care (01) ==
LOC: ED 09:27
DX: O20.9 Hemorrhage in early pregnancy, unspecified (principal); O23.41 Unspecified infection of urinary tract in pregnancy, first trimester; N39.0 Urinary tract infection, site not specified; N83.201 Unspecified ovarian cyst, right side; R10.2 Pelvic and perineal pain; Z28.310 Unvaccinated for COVID-19
CPT/HCPCS: 36415; 76801; 80053; 81001; 84702; 85025; 85610; 87077; 87086; 87186; 99283

== ENCOUNTER 2023-08-06 22:58 | Emergency (ER) | payer OTHER ==
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
[2023-08-07 00:07] VITALS: TEMP 98.1; O2SAT 98
[2023-08-07] MEDS ORDERED: TORAdol 30 mg Injection ONE ×2 (01:40→01:42)
[2023-08-07] MEDS: TORAdol 30 mg Injection IM ONE (01:41)
[2023-08-07 02:21] VITALS: BP 96/64; PULSE 64; RESP 18
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
== END 2023-08-07 02:29 | disposition home or self-care (01) ==
LOC: ED 22:58
DX: S70.311A Abrasion, right thigh, initial encounter (principal); S80.211A Abrasion, right knee, initial encounter; S80.811A Abrasion, right lower leg, initial encounter; S43.401A Unspecified sprain of right shoulder joint, initial encounter; V86.56XA Driver of dirt bike or motor/cross bike injured in nontraffic accident, initial encounter; Z79.899 Other long term (current) drug therapy
CPT/HCPCS: 73030; 73552; 73562; 73590; 96372; 99285; J1885